=== PATIENT | female | born 1940 ===

== ENCOUNTER 2020-05-18 01:23 | Inpatient (IN) | payer MEDICARE ==
[2020-05-18] MEDS ORDERED: cloNIDine 0.1 MG TAB PO PRN (12:40)
[2020-05-18] MEDS ORDERED: busPIRone 5 MG TAB PO PRN (12:40)
[2020-05-18] MEDS ORDERED: ZIPRASIDONE MESYLATE 20 MG VIAL IM PRN (16:21)
[2020-05-18] MEDS ORDERED: LORazepam 2 MG/ML VIAL IM PRN (16:21)
[2020-05-18] MEDS: APIXABAN 5 MG TAB PO SCH (21:47)
[2020-05-19 01:08] LABS: Basophils # (Auto) 0.1 K/mm3 (0.0-0.1); Eosinophils # (Auto) 0.2 K/mm3 (0.0-0.4); Eosinophils % (Auto) 2.9 % (0.0-4.3); Hematocrit 40.3 % (30.3-42.9); Hemoglobin 13.4 gm/dl (10.1-14.3); Lymphocytes # (Auto) 2.4 K/mm3 (1.2-5.4); Lymphocytes % (Auto) 29.5 % (13.4-35.0); Mean Corpuscular HGB Conc 33 % (30-34); Mean Corpuscular Volume 91 fl (79-97); Monocytes # (Auto) 0.8 K/mm3 (0.0-0.8); Monocytes % (Auto) 10.3 % (0.0-7.3); Platelet Count 235 K/mm3 (140-440); Red Blood Count 4.45 M/mm3 (3.65-5.03); Red Cell Distribution Width 14.1 % (13.2-15.2)
[2020-05-19 02:20] LABS: Alanine Aminotransferase 25 units/L (7-56); Blood Urea Nitrogen 14 mg/dL (7-17); Calcium 9.2 mg/dL (8.4-10.2); Chol/HDL Ratio 2.23 %; HDL Cholesterol 69 mg/dL (40-59); Hemolysis Index 11; LDL Cholesterol,Direct 89 mg/dL (50-130)
[2020-05-19 02:31] LABS: BUN/Creatinine Ratio 20
--- NOTE | 2020-05-19 08:05 | History and Physical Report ---
GP History & Physical - History of Present Illness Date of admission: 05/18/20 Date of Examination: 05/19/20 Reason for Admission: Severe anxiety/depression History of Present Illness: HPI Patient is a 80-year-old currently , retired female who currently resides with her daughter with past medical history of dementia and no other significant psychiatric or medical history. Patient was admitted from [facility] with initial presenting presentation complaints of behavioral disturbances. By daughter, she report patient adjusted to living with less than 2 weeks ago after her brother dropped the patient off for difficulty caring for his mom due to similar reported behavioral concerns. Daughter report patient has been uncooperative at home, seen wandering around the property and going into neighbor's house and has also been difficult to deal with. Per patient, she report getting to an argument with her daughter at home and walked out of the house only to meet a neighbor whom she had a conversation with and brought her back to the apartment. Patient denies having any other kind of issues with her daughter, says she does not know why she is here but her daughter told her that she is here so that she can be nicer. At this moment patient denies SI, HI, and AVH PAST PSYCHIATRIC HISTORY: Diagnoses: Dementia Suicide attempts or Self-harm behavior: None reported Prior psychiatric hospitalizations: None reported Substance Abuse history: Carola Previous psychiatric medications tried: None Outpatient treatment: none reported PAST MEDICAL HISTORY: None reported Family Psychiatric History: None reported or documented SOCIAL HISTORY Marital Status: Living Arrangements: with daughter Employment Status: retired Access to guns/weapons: none reported Education: 10th grade History of Abuse: none reported Legal History: none REVIEW OF SYSTEMS Constitutional: Negative for weight loss ENT: Negative for stridor Respiratory: Negative for cough or hemoptysis All other systems reviewed and are negative MENTAL STATUS EXAMINATION General Appearance and Behavior: Age appropriate, good hygiene, wearing appropriate clothes, uncooperative polite with questioning. Cooperation: cooperative Psychomotor Behavior: Psychomotor normal Mood: Affect and affective range: Flat Thought Process: Tangential, loose associattion Thought Content: Paranoid and confused Speech: Normal volume, Regular rate and rhythm, Intellectual Functioning: Poor Suicidal Ideation: N/A Homicidal Ideation: N/A Impulse Control: Unimpaired Insight and Judgment: Impaired Memory: memory impaired Attention:Distractible, Orientation: Alert, but disoriented and confused Diagnoses USING SLUMS SCORING SYSTEM: PAtient had a score of 17 which puts her in the Dementia category. Treatment Plan risperdol 0.5 mg BID Patient admitted for inpatient psychiatric evaluation, medication adjustment and close monitoring The patient's behavior, mood, sleep and appetite will be closely monitored. Patient enrolled in individual and group therapeutic sessions and encouraged to attend. Patient provided with a safe and structured environment. Patient's physical health needs will be addressed by the Hospitalist. Hospitalist Consulted Labs including CBC, CMP, Lipid profile and Hemoglobin A1C levels ordered for baseline reference Social Assessment will be completed and the [employer]er will work with patient and family to ensure a suitable and safe disposition Medication adjustment will be made as clinically indicated Usual Wellness Advent/Preservation: - Start Trazodone 50 mg po QHS & 50 mg po QHS PRN between 10 PM & 2 AM for insomnia - Start Melatonin 5 mg po QHS to promote circadian rhythm - Start [place]-3 for brain health, reduce impulsivity, and as adjunctive treatment for mood disorder, continue upon discharge given overall benefits. - Start B1 prophylaxis with 200 mg po for 5 days The patient agreed on the treatment plan, understood the risk, benefit, alternative treatment, potential consequence of no treatment, and gave informed consent. Initial Certification Inpatient psych services: I certify that the inpatient psychiatric services are required for treatment that could reasonably be expected to improve the patient's condition. Estimated days: 7 Post hospital care: primary care provider, psychiatric provider Legal Status: Voluntary Reaction to Hospitalization: Accepting Medications and Allergies Allergies Allergy/AdvReac Type Severity Reaction Status Date / Time No Known Allergies Allergy Unverified 05/18/20 06:48 Home Medications Medication Instructions Recorded Confirmed Last Taken Type Apixaban [Eliquis] 5 mg PO BID 05/18/20 05/18/20 Unknown History Atorvastatin (Nf) [Lipitor (Nf)] 10 mg PO QHS 05/18/20 05/18/20 Unknown History FLUoxetine HCL [Prozac] 20 mg PO DAILY 05/18/20 05/18/20 Unknown History Losartan [Cozaar] 50 mg PO QDAY 05/18/20 05/18/20 Unknown History busPIRone [Buspar] 5 mg PO BID PRN 05/18/20 05/18/20 Unknown History cloNIDine [Catapres] 0.1 mg PO BID PRN 05/18/20 05/18/20 Unknown History Active Meds: Active Medications Apixaban (Apixaban 5 Mg Tab) 5 mg PO BID [facility]; Protocol Last Admin: 05/18/20 21:47 Dose: 5 mg Documented by: Atorvastatin Calcium (Atorvastatin 10 Mg Tab) 10 mg PO QHS [facility] Last Admin: 05/18/20 21:47 Dose: 10 mg Documented by: Buspirone HCl (Buspirone 5 Mg Tab) 5 mg PO BID PRN PRN Reason: Anxiety Last Admin: 05/18/20 20:20 Dose: 5 mg Documented by: Clonidine HCl (Clonidine 0.1 Mg Tab) 0.1 mg PO BID PRN PRN Reason: Anxiety Lorazepam (Lorazepam 2 Mg/Ml Vial) 1 mg IM Q4H PRN PRN Reason: Agitation Losartan Potassium (Losartan 50 Mg Tab) 50 mg PO QDAY [facility] Ziprasidone (Ziprasidone Mesylate 20 Mg Vial) 5 mg IM Q4H PRN PRN Reason: Agitation Results - Results Labs/Vitals: Laboratory Last Values WBC 8.1 K/mm3 (4.5-11.0) 05/19/20 00:27 RBC 4.45 M/mm3 (3.65-5.03) 05/19/20 00:27 Hgb 13.4 gm/dl (10.1-14.3) 05/19/20 00:27 Hct 40.3 % (30.3-42.9) 05/19/20 00:27 MCV 91 fl (79-97) 05/19/20 00:27 MCH 30 pg (28-32) 05/19/20 00:27 MCHC 33 % (30-34) 05/19/20 00:27 RDW 14.1 % (13.2-15.2) 05/19/20 00:27 Plt Count 235 K/mm3 (140-440) 05/19/20 00:27 Lymph % (Auto) 29.5 % (13.4-35.0) 05/19/20 00:27 [place] % (Auto) 10.3 % (0.0-7.3) H 05/19/20 00:27 Eos % (Auto) 2.9 % (0.0-4.3) 05/19/20 00:27 Baso % (Auto) 1.0 % (0.0-1.8) 05/19/20 00:27 Lymph # (Auto) 2.4 K/mm3 (1.2-5.4) 05/19/20 00:27 [place] # (Auto) 0.8 K/mm3 (0.0-0.8) 05/19/20 00:27 Eos # (Auto) 0.2 K/mm3 (0.0-0.4) 05/19/20 00:27 Baso # (Auto) 0.1 K/mm3 (0.0-0.1) 05/19/20 00:27 Seg Neutrophils % 56.3 % (40.0-70.0) 05/19/20 00: Seg Neutrophils # 4.5 K/mm3 (1.8-7.7) 05/19/20 00:27 Sodium 133 mmol/L (137-145) L 05/19/20 00:27 Potassium 3.6 mmol/L (3.6-5.0) 05/19/20 00:27 Chloride 99.0 mmol/L (98-107) 05/19/20 00:27 Carbon Dioxide 26 mmol/L (22-30) 05/19/20 00:27 Anion Gap 12 mmol/L 05/19/20 00:27 BUN 14 mg/dL (7-17) 05/19/20 00:27 Creatinine 0.7 mg/dL (0.6-1.2) 05/19/20 00:27 Estimated GFR > 60 ml/min 05/19/20 00: BUN/Creatinine Ratio 20 % 05/19/20 00:27 Glucose 86 mg/dL (65-100) 05/19/20 00:27 POC Glucose 124 mg/dL (70-105) H 05/18/20 19:41 Hemoglobin A1c 5.6 % (4-6) 05/19/20 00:27 Calcium 9.2 mg/dL (8.4-10.2) 05/19/20 00:27 Total Bilirubin 0.40 mg/dL (0.1-1.2) 05/19/20 00:27 AST 34 units/L (5-40) 05/19/20 00:27 ALT 25 units/L (7-56) 05/19/20 00:27 Alkaline Phosphatase 103 units/L (35-129) 05/19/20 00:27 Total Protein 7.3 g/dL (6.3-8.2) 05/19/20 00:27 Albumin 4.0 g/dL (3.9-5) 05/19/20 00:27 Albumin/Globulin Ratio 1.2 % 05/19/20 00:27 Triglycerides 68 mg/dL (2-149) 05/19/20 00:27 Cholesterol 154 mg/dL (50-199) 05/19/20 00:27 LDL Cholesterol Direct 89 mg/dL (50-130) 05/19/20 00:27 HDL Cholesterol 69 mg/dL (40-59) H 05/19/20 00:27 Cholesterol/HDL Ratio 2.23 % 05/19/20 00:27 TSH 3.910 mlU/mL (0.270-4.200) 05/19/20 00:27 Last Vital Signs Temp 98.1 F 05/18/20 22:00 Pulse 98 H 05/18/20 22:00 Resp 15 05/18/20 22:00 BP 125/63 05/18/20 22:00 Pulse Ox 95 05/18/20 22:00 Physical Examination - Constitutional Vitals: Vital Signs Temp Pulse Resp BP Pulse Ox 98.1 F 98 H 15 125/63 95 05/18/20 22:00 05/18/20 22:00 05/18/20 22:00 05/18/20 22:00 05/18/20 22:00 Temperature -Last 24 Hours Temperature 98.1 F Temperature 98.1 F Mental Status Exam - Vital signs Last Vital Signs Temp 98.1 F 05/18/20 22:00 Pulse 98 H 05/18/20 22:00 Resp 15 05/18/20 22:00 BP 125/63 05/18/20 22:00 Pulse Ox 95 05/18/20 22:00 Physician Certification - Certification Statement Physician Certification Statement: This is an acknowledgement statement that MAUREEN SANTILLAN is a 80 year old F who requires inpatient psychiatric admission for treatment which could reasonably be expected to improve the patient's condition for Estimated period of time patient will need to remain in the hospital: [ ] Plan for post-hospital care: [ ]
[2020-05-19] MEDS: LOSARTAN 50 MG TAB PO SCH (09:37)
[2020-05-19] MEDS: APIXABAN 5 MG TAB PO SCH ×2 (09:54→21:21)
[2020-05-19] MEDS: risperiDONE 0.25 MG TAB PO SCH ×2 (09:54→21:21)
--- NOTE | 2020-05-19 20:58 | Consultation ---
History of Present Illness - Reason for Consult Consult date: 05/19/20 Medical management Requesting physician: DAYLIN JAMISON - History of Present Illness 80 year Female with Vascular Dementia with Behavioral Disturbance, Cerebral Atheroscleosis, HTN, HLD currently on therapeutic anticoagulation admitted to geriatric psychiatry for psychiatric stabilization. Consult placed for medical management. Patient seen and evaluated in her room. Patient is cooperative wi th exam and interview. Patient denies fever, chills, chest pain, palpitations, shortness of breath, difficulty breathing, productive cough, recent ill contacts, or known exposure to COVID 19. No reported nursing events. Past History Past Medical History: hypertension, hyperlipidemia, other (see hpi) Past Surgical History: No surgical history, Other (reviewed) Social history: . denies: smoking, alcohol abuse, prescription drug abuse Family history: no significant family history, other (reviewed) Medications and Allergies Allergies Allergy/AdvReac Type Severity Reaction Status Date / Time No Known Allergies Allergy Unverified 05/18/20 06:48 Home Medications Medication Instructions Recorded Confirmed Last Taken Type Apixaban [Eliquis] 5 mg PO BID 05/18/20 05/18/20 Unknown History Atorvastatin (Nf) [Lipitor (Nf)] 10 mg PO QHS 05/18/20 05/18/20 Unknown History FLUoxetine HCL [Prozac] 20 mg PO DAILY 05/18/20 05/18/20 Unknown History Losartan [Cozaar] 50 mg PO QDAY 05/18/20 05/18/20 Unknown History busPIRone [Buspar] 5 mg PO BID PRN 05/18/20 05/18/20 Unknown History cloNIDine [Catapres] 0.1 mg PO BID PRN 05/18/20 05/18/20 Unknown History Active Meds: Active Medications Apixaban (Apixaban 5 Mg Tab) 5 mg PO BID [facility]; Protocol Last Admin: 05/19/20 09:54 Dose: 5 mg Documented by: Atorvastatin Calcium (Atorvastatin 10 Mg Tab) 10 mg PO QHS [facility] Last Admin: 05/18/20 21:47 Dose: 10 mg Documented by: Buspirone HCl (Buspirone 5 Mg Tab) 5 mg PO BID PRN PRN Reason: Anxiety Last Admin: 05/18/20 20:20 Dose: 5 mg Documented by: Clonidine HCl (Clonidine 0.1 Mg Tab) 0.1 mg PO BID PRN PRN Reason: Anxiety Lorazepam (Lorazepam 2 Mg/Ml Vial) 1 mg IM Q4H PRN PRN Reason: Agitation Losartan Potassium (Losartan 50 Mg Tab) 50 mg PO QDAY [facility] Last Admin: 05/19/20 09:37 Dose: 50 mg Documented by: Risperidone (Risperidone 0.25 Mg Tab) 0.5 mg PO BID [facility] Last Admin: 05/19/20 09:54 Dose: 0.5 mg Documented by: Ziprasidone (Ziprasidone Mesylate 20 Mg Vial) 5 mg IM Q4H PRN PRN Reason: Agitation Review of Systems Constitutional: no weight loss, no weight gain Ears, nose, mouth and throat: no ear pain, no nose pain Breasts: no change in shape, no swelling, no mass Cardiovascular: no chest pain, no palpitations, no rapid/irregular heart beat Respiratory: no cough, no excessive sputum, no hemoptysis Gastrointestinal: no abdominal pain, no vomiting, no diarrhea, no constipation, no hematemesis Genitourinary Female: no pelvic pain, no flank pain, no dysuria, no urinary frequency, no urgency Rectal: no pain, no incontinence, no bleeding Musculoskeletal: no neck stiffness, no neck pain, no shooting arm pain, no low back pain, no shooting leg pain, no leg numbness/tingling Integumentary: no rash, no pruritis, no redness, no sores Neurological: no head injury, no paralysis, no weakness, no numbness, no tremors, no ataxia Psychiatric: no anxiety, no change in sleep habits, no insomnia, no change in appetite Endocrine: no cold intolerance, no polyphagia, no polydipsia, no nocturia, no excessive sweating Hematologic/Lymphatic: no easy bruising, no easy bleeding Allergic/Immunologic: no wheezing Exam - Constitutional Vitals: Temp Pulse Resp BP Pulse Ox 97.9 F 79 16 137/76 98 05/19/20 19:36 05/19/20 19:36 05/19/20 19:36 05/19/20 19:36 05/19/20 19:36 General appearance: Present: no acute distress, well-nourished - EENT Eyes: Present: PERRL ENT: hearing intact, clear oral mucosa - Neck Neck: Present: supple, normal ROM - Respiratory Respiratory effort: normal Respiratory: bilateral: CTA - Cardiovascular Heart Sounds: Present: S1 & S2. Absent: rub, click - Extremities Extremities: pulses symmetrical, No edema Peripheral Pulses: within normal limits - Abdominal General gastrointestinal: Present: soft, non-tender, non-distended, normal bowel sounds Female genitourinary: Present: normal - Integumentary Integumentary: Present: clear, warm, dry - Musculoskeletal Musculoskeletal: gait normal, strength equal bilaterally - Psychiatric Psychiatric: cooperative - Neurologic Neurologic: CNII-XII intact, moves all extremities Results - Labs CBC & Chem 7: 05/19/20 00:27 05/19/20 00:27 Labs: Abnormal lab results 05/18/20 05/19/20 05/19/20 Range/Units 19:41 00:27 00:27 [place] % (Auto) 10.3 H (0.0-7.3) % Sodium 133 L (137-145) mmol/L POC Glucose 124 H (70-105) mg/dL HDL Cholesterol 69 H (40-59) mg/dL Assessment and Plan - Patient Problems (1) Vascular dementia with behavior disturbance Current Visit: Yes Status: Acute Plan to address problem: verbal prompting, verbal direction, benzodiazepine therapy as clinically indicated. (2) HTN (hypertension) Current Visit: Yes Status: Acute Qualifiers: Hypertension type: essential hypertension Qualified Code(s): I10 - Essential (primary) hypertension Plan to address problem: Monitor bp q shift, continue medical management (3) HLD (hyperlipidemia) Current Visit: Yes Status: Acute Qualifiers: Hyperlipidemia type: unspecified Qualified Code(s): E78.5 - Hyperlipidemia, unspecified Plan to address problem: statin therapy as clinically indicated, low cholesterol diet (4) Cerebral atherosclerosis Current Visit: Yes Status: Acute Plan to address problem: risk factor reduction.
--- NOTE | 2020-05-20 07:48 | Progress Note ---
Subjective Date of service: 05/20/20 Principal diagnosis: Vascular dementia with behavior disturbance Subjective Comment: Per Psych Nurse: Received in social room interacting appropriate with peers. A&OX3 with intermittent confusion. Denies pain, SI or HI. No acute distress observed and none reported. Will continue to monitor. pt was present for full duration of group and actively engaged. when pt noticed the activity we were completing, pt smiled. pt sat with peers and created a bracelet with her daughter's name on it. pt's color of choice were purple. pt used uniformity and organization when she created her bracelet. pt was able to tie her own bracelet without assistance. pt socialized wit peers and supported them aeb complimenting their creations. Psych Progress Patient seen today, appears smiley, states she remembers talking to daughter but does not know if it was today or the previous day. Patient describes a good and stable mood, denies being depressed or excessively nervous. Patient eats and sleeps well. She is also medication compliant. REVIEW OF SYSTEMS Constitutional: Negative for weight loss ENT: Negative for stridor Respiratory: Negative for cough or hemoptysis All other systems reviewed and are negative MENTAL STATUS EXAMINATION General Appearance and Behavior: Age appropriate, good hygiene, wearing appropriate clothes, uncooperative polite with questioning. Cooperation: cooperative Psychomotor Behavior: Psychomotor normal Mood: good Affect and affective range: congruent with mood Thought Process: within reality Thought Content: logical Speech: Normal volume, Regular rate and rhythm, Intellectual Functioning: Poor Suicidal Ideation: denies Homicidal Ideation: denies Impulse Control: Unimpaired Insight and Judgment: Impaired Memory: memory impaired Attention:Distractible, Orientation: Alert, but disoriented and confused Assessment and Plan - Patient Problems (1) Vascular dementia with behavior disturbance Current Visit: Yes Status: Acute USING SLUMS SCORING SYSTEM: Patient had a score of 17 which puts her in the Dementia category. Treatment Plan Risperdol 0.5 mg BID Plan to increase risperdol to 1mg BID tomorrow. Patient admitted for inpatient psychiatric evaluation, medication adjustment and close monitoring The patient's behavior, mood, sleep and appetite will be closely monitored. Patient enrolled in individual and group therapeutic sessions and encouraged to attend. Patient provided with a safe and structured environment. Patient's physical health needs will be addressed by the Hospitalist. Hospitalist Consulted Labs including CBC, CMP, Lipid profile and Hemoglobin A1C levels ordered for baseline reference Social Assessment will be completed and the Responder will work with patient and family to ensure a suitable and safe disposition Medication adjustment will be made as clinically indicated Usual Wellness Adventist/Preservation: - Start Trazodone 50 mg po QHS & 50 mg po QHS PRN between 10 PM & 2 AM for insomnia - Start Melatonin 5 mg po QHS to promote circadian rhythm - Start [place]-3 for brain health, reduce impulsivity, and as adjunctive treatment for mood disorder, continue upon discharge given overall benefits. - Start B1 prophylaxis with 200 mg po for 5 days The patient agreed on the treatment plan, understood the risk, benefit, alternative treatment, potential consequence of no treatment, and gave informed consent. Initial Certification Inpatient psych services: I certify that the inpatient psychiatric services are required for treatment that could reasonably be expected to improve the patient's condition. Estimated days: 5 Assessment and Plan - Patient Problems (1) Vascular dementia with behavior disturbance Current Visit: Yes Status: Acute Medications and Allergies Allergies Allergy/AdvReac Type Severity Reaction Status Date / Time No Known Allergies Allergy Unverified 05/18/20 06:48 Home Medications Medication Instructions Recorded Confirmed Last Taken Type Apixaban [Eliquis] 5 mg PO BID 05/18/20 05/18/20 Unknown History Atorvastatin (Nf) [Lipitor (Nf)] 10 mg PO QHS 05/18/20 05/18/20 Unknown History FLUoxetine HCL [Prozac] 20 mg PO DAILY 05/18/20 05/18/20 Unknown History Losartan [Cozaar] 50 mg PO QDAY 05/18/20 05/18/20 Unknown History busPIRone [Buspar] 5 mg PO BID PRN 05/18/20 05/18/20 Unknown History cloNIDine [Catapres] 0.1 mg PO BID PRN 05/18/20 05/18/20 Unknown History Active Meds: Active Medications Apixaban (Apixaban 5 Mg Tab) 5 mg PO BID [facility]; Protocol Last Admin: 05/19/20 21:21 Dose: 5 mg Documented by: Atorvastatin Calcium (Atorvastatin 10 Mg Tab) 10 mg PO QHS [facility] Last Admin: 05/19/20 21:21 Dose: 10 mg Documented by: Buspirone HCl (Buspirone 5 Mg Tab) 5 mg PO BID PRN PRN Reason: Anxiety Last Admin: 05/18/20 20:20 Dose: 5 mg Documented by: Clonidine HCl (Clonidine 0.1 Mg Tab) 0.1 mg PO BID PRN PRN Reason: Anxiety Lorazepam (Lorazepam 2 Mg/Ml Vial) 1 mg IM Q4H PRN PRN Reason: Agitation Losartan Potassium (Losartan 50 Mg Tab) 50 mg PO QDAY [facility] Last Admin: 05/19/20 09:37 Dose: 50 mg Documented by: Risperidone (Risperidone 0.25 Mg Tab) 0.5 mg PO BID [facility] Last Admin: 05/19/20 21:21 Dose: 0.5 mg Documented by: Ziprasidone (Ziprasidone Mesylate 20 Mg Vial) 5 mg IM Q4H PRN PRN Reason: Agitation Results - Results Labs/Vitals: Laboratory Last Values WBC 8.1 K/mm3 (4.5-11.0) 05/19/20 00:27 RBC 4.45 M/mm3 (3.65-5.03) 05/19/20 00:27 Hgb 13.4 gm/dl (10.1-14.3) 05/19/20 00:27 Hct 40.3 % (30.3-42.9) 05/19/20 00:27 MCV 91 fl (79-97) 05/19/20 00:27 MCH 30 pg (28-32) 05/19/20 00:27 MCHC 33 % (30-34) 05/19/20 00:27 RDW 14.1 % (13.2-15.2) 05/19/20 00:27 Plt Count 235 K/mm3 (140-440) 05/19/20 00:27 Lymph % (Auto) 29.5 % (13.4-35.0) 05/19/20 00:27 [place] % (Auto) 10.3 % (0.0-7.3) H 05/19/20 00:27 Eos % (Auto) 2.9 % (0.0-4.3) 05/19/20 00:27 Baso % (Auto) 1.0 % (0.0-1.8) 05/19/20 00:27 Lymph # (Auto) 2.4 K/mm3 (1.2-5.4) 05/19/20 00:27 [place] # (Auto) 0.8 K/mm3 (0.0-0.8) 05/19/20 00:27 Eos # (Auto) 0.2 K/mm3 (0.0-0.4) 05/19/20 00:27 Baso # (Auto) 0.1 K/mm3 (0.0-0.1) 05/19/20 00:27 Seg Neutrophils % 56.3 % (40.0-70.0) 05/19/20 00: Seg Neutrophils # 4.5 K/mm3 (1.8-7.7) 05/19/20 00:27 Sodium 133 mmol/L (137-145) L 05/19/20 00:27 Potassium 3.6 mmol/L (3.6-5.0) 05/19/20 00: Chloride 99.0 mmol/L (98-107) 05/19/20 00: Carbon Dioxide 26 mmol/L (22-30) 05/19/20 00: Anion Gap 12 mmol/L 05/19/20 00: BUN 14 mg/dL (7-17) 05/19/20 00: Creatinine 0.7 mg/dL (0.6-1.2) 05/19/20 00:27 Estimated GFR > 60 ml/min 05/19/20 00: BUN/Creatinine Ratio 20 % 05/19/20 00:27 Glucose 86 mg/dL (65-100) 05/19/20 00:27 POC Glucose 124 mg/dL (70-105) H 05/18/20 19:41 Hemoglobin A1c 5.6 % (4-6) 05/19/20 00: Calcium 9.2 mg/dL (8.4-10.2) 05/19/20 00:27 Total Bilirubin 0.40 mg/dL (0.1-1.2) 05/19/20 00:27 AST 34 units/L (5-40) 05/19/20 00:27 ALT 25 units/L (7-56) 05/19/20 00:27 Alkaline Phosphatase 103 units/L (35-129) 05/19/20 00:27 Total Protein 7.3 g/dL (6.3-8.2) 05/19/20 00: Albumin 4.0 g/dL (3.9-5) 05/19/20 00:27 Albumin/Globulin Ratio 1.2 % 05/19/20 00:27 Triglycerides 68 mg/dL (2-149) 05/19/20 00:27 Cholesterol 154 mg/dL (50-199) 05/19/20 00:27 LDL Cholesterol Direct 89 mg/dL (50-130) 05/19/20 00:27 HDL Cholesterol 69 mg/dL (40-59) H 05/19/20 00:27 Cholesterol/HDL Ratio 2.23 % 05/19/20 00:27 TSH 3.910 mlU/mL (0.270-4.200) 05/19/20 00:27 Last Vital Signs Temp 97.9 F 05/19/20 22:00 Pulse 83 05/19/20 22:00 Resp 16 05/19/20 22:00 BP 137/76 05/19/20 22:00 Pulse Ox 98 05/19/20 22:00
[2020-05-20] MEDS: risperiDONE 0.25 MG TAB PO SCH ×2 (09:23→21:07)
[2020-05-20] MEDS: LOSARTAN 50 MG TAB PO SCH (09:23)
[2020-05-20] MEDS: APIXABAN 5 MG TAB PO SCH ×2 (09:23→21:07)
--- NOTE | 2020-05-20 12:02 | Progress Note ---
Subjective Date of service: 05/20/20 Principal diagnosis: Vascular dementia with behavior disturbance Subjective Comment: Patient Name: MAUREEN SANTILLAN Date of : 1940 Patient Status: Inpatient Attending Provider: DAYLIN JAMISON Date: 05/20/20 07:47 Initialization Date: 05/20/20 07:47 Subjective Date of service: 05/20/20 Principal diagnosis: Vascular dementia with behavior disturbance Subjective Comment: Per Psych Nurse: Received in social room interacting appropriate with peers. A&OX3 with intermittent confusion. Denies pain, SI or HI. No acute distress observed and none reported. Will continue to monitor. pt was present for full duration of group and actively engaged. when pt noticed the activity we were completing, pt smiled. pt sat with peers and created a bracelet with her daughter's name on it. pt's color of choice were purple. pt used uniformity and organization when she created her bracelet. pt was able to tie her own bracelet without assistance. pt socialized wit peers and supported them aeb complimenting their creations. Psych Progress Psych Progress HPI Patient's morning assessment completed. Alert, cooperative, and exhibit polite with questioning. Patient appears pleasant, happy and not in depressed mood. Patient reports eats good and sleeps very well with no nightmare. Denies anxiety, agitation, hypomania or ara. Also, denies SI/HI, and visual/auditory hallucinations. Reason for continuing inpatient treatment: We will continue to monitor patient's mood and mental stability. REVIEW OF SYSTEMS Constitutional: Negative for weight loss ENT: Negative for strider Respiratory: Negative for cough or hemoptysis All other systems reviewed and are negative MENTAL STATUS EXAMINATION General Appearance and Behavior: Age appropriate, good hygiene, wearing appropriate clothes, cooperative polite with questioning. Cooperation: cooperative Psychomotor Behavior: Psychomotor normal Mood: good Affect and affective range: congruent with mood Thought Process: within reality Thought Content: logical Speech: Normal volume, Regular rate and rhythm, Intellectual Functioning: Average Suicidal Ideation: denies Homicidal Ideation: denies Impulse Control: Unimpaired Insight and Judgment: normal insight and judgment Memory: intact Attention: Normal Orientation: Alert, but oriented Assessment and Plan - Patient Problems (1) Vascular dementia with behavior disturbance Current Visit: Yes Status: Acute USING SLUMS SCORING SYSTEM: Patient had a score of 17 which puts her in the Dementia category. Treatment Plan Risperdol 0.5 mg BID Plan to increase risperdol to 1mg BID tomorrow. Patient admitted for inpatient psychiatric evaluation, medication adjustment and close monitoring The patient's behavior, mood, sleep and appetite will be closely monitored. Patient enrolled in individual and group therapeutic sessions and encouraged to attend. Patient provided with a safe and structured environment. Patient's physical health needs will be addressed by the Hospitalist. Hospitalist Consulted Labs including CBC, CMP, Lipid profile and Hemoglobin A1C levels ordered for baseline reference Social Assessment will be completed and the [employer] will work with patient and family to ensure a suitable and safe disposition Medication adjustment will be made as clinically indicated Usual Wellness [employer]/Preservation: - Start Trazodone 50 mg po QHS & 50 mg po QHS PRN between 10 PM & 2 AM for insomnia - Start Melatonin 5 mg po QHS to promote circadian rhythm - Start [place]-3 for brain health, reduce impulsivity, and as adjunctive treatment for mood disorder, continue upon discharge given overall benefits. - Start B1 prophylaxis with 200 mg po for 5 days The patient agreed on the treatment plan, understood the risk, benefit, alternative treatment, potential consequence of no treatment, and gave informed consent. Initial Certification Inpatient psych services: I certify that the inpatient psychiatric services are required for treatment that could reasonably be expected to improve the patient's condition. Estimated days: 5 Medications and Allergies Allergies Allergy/AdvReac Type Severity Reaction Status Date / Time No Known Allergies Allergy Unverified 05/18/20 06:48 Home Medications Medication Instructions Recorded Confirmed Last Taken Type Apixaban [Eliquis] 5 mg PO BID 05/18/20 05/18/20 Unknown History Atorvastatin (Nf) [Lipitor (Nf)] 10 mg PO QHS 05/18/20 05/18/20 Unknown History FLUoxetine HCL [Prozac] 20 mg PO DAILY 05/18/20 05/18/20 Unknown History Losartan [Cozaar] 50 mg PO QDAY 05/18/20 05/18/20 Unknown History busPIRone [Buspar] 5 mg PO BID PRN 05/18/20 05/18/20 Unknown History cloNIDine [Catapres] 0.1 mg PO BID PRN 05/18/20 05/18/20 Unknown History Active Meds: Active Medications Apixaban (Apixaban 5 Mg Tab) 5 mg PO BID [facility]; Protocol Last Admin: 05/20/20 09:23 Dose: 5 mg Documented by: Atorvastatin Calcium (Atorvastatin 10 Mg Tab) 10 mg PO QHS [facility] Last Admin: 05/19/20 21:21 Dose: 10 mg Documented by: Buspirone HCl (Buspirone 5 Mg Tab) 5 mg PO BID PRN PRN Reason: Anxiety Last Admin: 05/18/20 20:20 Dose: 5 mg Documented by: Clonidine HCl (Clonidine 0.1 Mg Tab) 0.1 mg PO BID PRN PRN Reason: Anxiety Lorazepam (Lorazepam 2 Mg/Ml Vial) 1 mg IM Q4H PRN PRN Reason: Agitation Losartan Potassium (Losartan 50 Mg Tab) 50 mg PO QDAY [facility] Last Admin: 05/20/20 09:23 Dose: 50 mg Documented by: Risperidone (Risperidone 0.25 Mg Tab) 0.5 mg PO BID [facility] Last Admin: 05/20/20 09:23 Dose: 0.5 mg Documented by: Ziprasidone (Ziprasidone Mesylate 20 Mg Vial) 5 mg IM Q4H PRN PRN Reason: Agitation Results - Results Labs/Vitals: Laboratory Last Values WBC 8.1 K/mm3 (4.5-11.0) 05/19/20 00:27 RBC 4.45 M/mm3 (3.65-5.03) 05/19/20 00:27 Hgb 13.4 gm/dl (10.1-14.3) 05/19/20 00:27 Hct 40.3 % (30.3-42.9) 05/19/20 00:27 MCV 91 fl (79-97) 05/19/20 00:27 MCH 30 pg (28-32) 05/19/20 00:27 MCHC 33 % (30-34) 05/19/20 00:27 RDW 14.1 % (13.2-15.2) 05/19/20 00:27 Plt Count 235 K/mm3 (140-440) 05/19/20 00:27 Lymph % (Auto) 29.5 % (13.4-35.0) 05/19/20 00:27 [place] % (Auto) 10.3 % (0.0-7.3) H 05/19/20 00:27 Eos % (Auto) 2.9 % (0.0-4.3) 05/19/20 00:27 Baso % (Auto) 1.0 % (0.0-1.8) 05/19/20 00:27 Lymph # (Auto) 2.4 K/mm3 (1.2-5.4) 05/19/20 00:27 [place] # (Auto) 0.8 K/mm3 (0.0-0.8) 05/19/20 00:27 Eos # (Auto) 0.2 K/mm3 (0.0-0.4) 05/19/20 00:27 Baso # (Auto) 0.1 K/mm3 (0.0-0.1) 05/19/20 00:27 Seg Neutrophils % 56.3 % (40.0-70.0) 05/19/20 00:27 Seg Neutrophils # 4.5 K/mm3 (1.8-7.7) 05/19/20 00:27 Sodium 133 mmol/L (137-145) L 05/19/20 00:27 Potassium 3.6 mmol/L (3.6-5.0) 05/19/20 00:27 Chloride 99.0 mmol/L (98-107) 05/19/20 00:27 Carbon Dioxide 26 mmol/L (22-30) 05/19/20 00:27 Anion Gap 12 mmol/L 05/19/20 00:27 BUN 14 mg/dL (7-17) 05/19/20 00:27 Creatinine 0.7 mg/dL (0.6-1.2) 05/19/20 00:27 Estimated GFR > 60 ml/min 05/19/20 00:27 BUN/Creatinine Ratio 20 % 05/19/20 00:27 Glucose 86 mg/dL (65-100) 05/19/20 00:27 POC Glucose 124 mg/dL (70-105) H 05/18/20 19:41 Hemoglobin A1c 5.6 % (4-6) 05/19/20 00:27 Calcium 9.2 mg/dL (8.4-10.2) 05/19/20 00:27 Total Bilirubin 0.40 mg/dL (0.1-1.2) 05/19/20 00:27 AST 34 units/L (5-40) 05/19/20 00:27 ALT 25 units/L (7-56) 05/19/20 00:27 Alkaline Phosphatase 103 units/L (35-129) 05/19/20 00:27 Total Protein 7.3 g/dL (6.3-8.2) 05/19/20 00: Albumin 4.0 g/dL (3.9-5) 05/19/20 00: Albumin/Globulin Ratio 1.2 % 05/19/20 00: Triglycerides 68 mg/dL (2-149) 05/19/20 00: Cholesterol 154 mg/dL (50-199) 05/19/20 00: LDL Cholesterol Direct 89 mg/dL (50-130) 05/19/20 00: HDL Cholesterol 69 mg/dL (40-59) H 05/19/20 00:27 Cholesterol/HDL Ratio 2.23 % 05/19/20 00: TSH 3.910 mlU/mL (0.270-4.200) 05/19/20 00:27 Last Vital Signs Temp 98.2 F 05/20/20 09:31 Pulse 70 05/20/20 09:31 Resp 18 05/20/20 09:31 BP 112/67 05/20/20 09:31 Pulse Ox 97 05/20/20 09:31
--- NOTE | 2020-05-21 07:40 | Progress Note ---
Subjective Date of service: 05/21/20 Principal diagnosis: Vascular dementia with behavior disturbance Subjective Comment: PER Nurse Note: Pt continues to be pleasant, social w/ others, attentive during groups and cooperative w/ staff. pt spoke w/ her daughter on the telephone this afternoon. The patient was seen today, she is lying down she is a/o x 3. She is pleasant. She says she is "unsure of why my daughter brought me here." She denies SI/HI or hallucinations of any kind. Reason for continued inpatient treatment: The patient was admitted for aggression and had failed outpatient treatment. Although she appears to be stable, will continue to treat and monitor to ensure the patient is safe and stable to discharge. REVIEW OF SYSTEMS Constitutional: Negative for weight loss ENT: Negative for strider Respiratory: Negative for cough or hemoptysis All other systems reviewed and are negative MENTAL STATUS EXAMINATION General Appearance and Behavior: Age appropriate, good hygiene, wearing appropriate clothes, cooperative polite with questioning. Cooperation: cooperative Psychomotor Behavior: Psychomotor normal Mood: good Affect and affective range: congruent with mood Thought Process: within reality Thought Content: logical Speech: Normal volume, Regular rate and rhythm, Intellectual Functioning: Average Suicidal Ideation: denies Homicidal Ideation: denies Impulse Control: Unimpaired Insight and Judgment: normal insight and judgment Memory: intact Attention: Normal Orientation: Alert, but oriented Assessment and Plan (1) Vascular dementia with behavior disturbance Current Visit: Yes Status: Acute USING SLUMS SCORING SYSTEM: Patient had a score of 17 which puts her in the Dementia category. Treatment Plan Patient admitted for inpatient psychiatric evaluation, medication adjustment and close monitoring The patient's behavior, mood, sleep and appetite will be closely monitored. Patient enrolled in individual and group therapeutic sessions and encouraged to attend. Patient provided with a safe and structured environment. Patient's physical health needs will be addressed by the Hospitalist. Hospitalist Consulted Labs including CBC, CMP, Lipid profile and Hemoglobin A1C levels ordered for baseline reference Social Assessment will be completed and the Putty Worker will work with patient and family to ensure a suitable and safe disposition Medication adjustment will be made as clinically indicated No changes made today Usual Wellness [employer]/Preservation: - Start Trazodone 50 mg po QHS & 50 mg po QHS PRN between 10 PM & 2 AM for insomnia - Start Melatonin 5 mg po QHS to promote circadian rhythm - Start [place]-3 for brain health, reduce impulsivity, and as adjunctive treatment for mood disorder, continue upon discharge given overall benefits. - Start B1 prophylaxis with 200 mg po for 5 days The patient agreed on the treatment plan, understood the risk, benefit, alternative treatment, potential consequence of no treatment, and gave informed consent. Estimated days: 5 Outpatient treatment upon discharge Medications and Allergies Allergies Allergy/AdvReac Type Severity Reaction Status Date / Time No Known Allergies Allergy Unverified 05/18/20 06:48 Home Medications Medication Instructions Recorded Confirmed Last Taken Type Apixaban [Eliquis] 5 mg PO BID 05/18/20 05/18/20 Unknown History Atorvastatin (Nf) [Lipitor (Nf)] 10 mg PO QHS 05/18/20 05/18/20 Unknown History FLUoxetine HCL [Prozac] 20 mg PO DAILY 05/18/20 05/18/20 Unknown History Losartan [Cozaar] 50 mg PO QDAY 05/18/20 05/18/20 Unknown History busPIRone [Buspar] 5 mg PO BID PRN 05/18/20 05/18/20 Unknown History cloNIDine [Catapres] 0.1 mg PO BID PRN 05/18/20 05/18/20 Unknown History Active Meds: Active Medications Apixaban (Apixaban 5 Mg Tab) 5 mg PO BID [facility]; Protocol Last Admin: 05/20/20 21:07 Dose: 5 mg Documented by: Atorvastatin Calcium (Atorvastatin 10 Mg Tab) 10 mg PO QHS [facility] Last Admin: 05/20/20 21:07 Dose: 10 mg Documented by: Buspirone HCl (Buspirone 5 Mg Tab) 5 mg PO BID PRN PRN Reason: Anxiety Last Admin: 05/18/20 20:20 Dose: 5 mg Documented by: Clonidine HCl (Clonidine 0.1 Mg Tab) 0.1 mg PO BID PRN PRN Reason: Anxiety Lorazepam (Lorazepam 2 Mg/Ml Vial) 1 mg IM Q4H PRN PRN Reason: Agitation Losartan Potassium (Losartan 50 Mg Tab) 50 mg PO QDAY [facility] Last Admin: 05/20/20 09:23 Dose: 50 mg Documented by: Risperidone (Risperidone 0.25 Mg Tab) 0.5 mg PO BID [facility] Last Admin: 05/20/20 21:07 Dose: 0.5 mg Documented by: Ziprasidone (Ziprasidone Mesylate 20 Mg Vial) 5 mg IM Q4H PRN PRN Reason: Agitation Results - Results Labs/Vitals: Laboratory Last Values WBC 8.1 K/mm3 (4.5-11.0) 05/19/20 00: RBC 4.45 M/mm3 (3.65-5.03) 05/19/20 00: Hgb 13.4 gm/dl (10.1-14.3) 05/19/20 00: Hct 40.3 % (30.3-42.9) 05/19/20: MCV 91 fl (79-97) 05/19/20 00: MCH 30 pg (28-32) 05/19/20 00: MCHC 33 % (30-34) 05/19/20 00: RDW 14.1 % (13.2-15.2) 05/19/20 00: Plt Count 235 K/mm3 (140-440) 05/19/20 00: Lymph % (Auto) 29.5 % (13.4-35.0) 05/19/20 00: [place] % (Auto) 10.3 % (0.0-7.3) H 05/19/20 00: Eos % (Auto) 2.9 % (0.0-4.3) 05/19/20 00: Baso % (Auto) 1.0 % (0.0-1.8) 05/19/20 00: Lymph # (Auto) 2.4 K/mm3 (1.2-5.4) 05/19/20 00: [place] # (Auto) 0.8 K/mm3 (0.0-0.8) 05/19/20 00: Eos # (Auto) 0.2 K/mm3 (0.0-0.4) 05/19/20 00: Baso # (Auto) 0.1 K/mm3 (0.0-0.1) 05/19/20 00: Seg Neutrophils % 56.3 % (40.0-70.0) 05/19/20 00: Seg Neutrophils # 4.5 K/mm3 (1.8-7.7) 05/19/20 00: Sodium 133 mmol/L (137-145) L 05/19/20 00: Potassium 3.6 mmol/L (3.6-5.0) 05/19/20 00:27 Chloride 99.0 mmol/L (98-107) 05/19/20 00:27 Carbon Dioxide 26 mmol/L (22-30) 05/19/20 00:27 Anion Gap 12 mmol/L 05/19/20 00:27 BUN 14 mg/dL (7-17) 05/19/20 00:27 Creatinine 0.7 mg/dL (0.6-1.2) 05/19/20 00:27 Estimated GFR > 60 ml/min 05/19/20 00: BUN/Creatinine Ratio 20 % 05/19/20 00:27 Glucose 86 mg/dL (65-100) 05/19/20 00: POC Glucose 124 mg/dL (70-105) H 05/18/20 19:41 Hemoglobin A1c 5.6 % (4-6) 05/19/20 00: Calcium 9.2 mg/dL (8.4-10.2) 05/19/20 00: Total Bilirubin 0.40 mg/dL (0.1-1.2) 05/19/20 00:27 AST 34 units/L (5-40) 05/19/20 00:27 ALT 25 units/L (7-56) 05/19/20 00:27 Alkaline Phosphatase 103 units/L (35-129) 05/19/20 00:27 Total Protein 7.3 g/dL (6.3-8.2) 05/19/20 00: Albumin 4.0 g/dL (3.9-5) 05/19/20 00: Albumin/Globulin Ratio 1.2 % 05/19/20 00:27 Triglycerides 68 mg/dL (2-149) 05/19/20 00:27 Cholesterol 154 mg/dL (50-199) 05/19/20 00:27 LDL Cholesterol Direct 89 mg/dL (50-130) 05/19/20 00:27 HDL Cholesterol 69 mg/dL (40-59) H 05/19/20 00:27 Cholesterol/HDL Ratio 2.23 % 05/19/20 00:27 TSH 3.910 mlU/mL (0.270-4.200) 05/19/20 00:27 Last Vital Signs Temp 97.9 F 05/20/20 22:00 Pulse 79 05/20/20 22:00 Resp 18 05/20/20 22:00 BP 144/72 05/20/20 22:00 Pulse Ox 96 05/20/20 22:00
[2020-05-21] MEDS: LOSARTAN 50 MG TAB PO SCH (09:32)
[2020-05-21] MEDS: APIXABAN 5 MG TAB PO SCH ×2 (09:32→21:07)
[2020-05-21] MEDS: risperiDONE 0.25 MG TAB PO SCH ×2 (09:32→21:28)
[2020-05-22] MEDS: APIXABAN 5 MG TAB PO SCH ×2 (09:16→21:17)
[2020-05-22] MEDS: risperiDONE 0.25 MG TAB PO SCH ×2 (09:16→21:16)
[2020-05-22] MEDS: LOSARTAN 50 MG TAB PO SCH (09:17)
--- NOTE | 2020-05-22 10:12 | Progress Note ---
Subjective Date of service: 05/22/20 Principal diagnosis: Vascular dementia with behavior disturbance Subjective Comment: The patient was seen today, she is in the dayroom. She says she feels fine. The patient also says she slept fine. She denies SI/HI or hallucinations of any kind. Reason for continued inpatient treatment: The patient is unable to care fore herself and is awaiting placement. Will plan for a safe discharge once placement is secure. REVIEW OF SYSTEMS Constitutional: Negative for weight loss ENT: Negative for strider Respiratory: Negative for cough or hemoptysis All other systems reviewed and are negative MENTAL STATUS EXAMINATION General Appearance and Behavior: Age appropriate, good hygiene, wearing appropriate clothes, cooperative polite with questioning. Cooperation: cooperative Psychomotor Behavior: Psychomotor normal Mood: good Affect and affective range: congruent with mood Thought Process: within reality Thought Content: logical Speech: Normal volume, Regular rate and rhythm, Intellectual Functioning: Average Suicidal Ideation: denies Homicidal Ideation: denies Impulse Control: Unimpaired Insight and Judgment: normal insight and judgment Memory: intact Attention: Normal Orientation: Alert, but oriented Assessment and Plan (1) Vascular dementia with behavior disturbance Current Visit: Yes Status: Acute USING SLUMS SCORING SYSTEM: Patient had a score of 17 which puts her in the Dementia category. Treatment Plan Patient admitted for inpatient psychiatric evaluation, medication adjustment and close monitoring The patient's behavior, mood, sleep and appetite will be closely monitored. Patient enrolled in individual and group therapeutic sessions and encouraged to attend. Patient provided with a safe and structured environment. Patient's physical health needs will be addressed by the Hospitalist. Hospitalist Consulted Labs including CBC, CMP, Lipid profile and Hemoglobin A1C levels ordered for baseline reference Social Assessment will be completed and the Cage Loader will work with patient and family to ensure a suitable and safe disposition Medication adjustment will be made as clinically indicated No changes made today Usual Wellness [employer]/Preservation: - Start Trazodone 50 mg po QHS & 50 mg po QHS PRN between 10 PM & 2 AM for insomnia - Start Melatonin 5 mg po QHS to promote circadian rhythm - Start [place]-3 for brain health, reduce impulsivity, and as adjunctive treatment for mood disorder, continue upon discharge given overall benefits. - Start B1 prophylaxis with 200 mg po for 5 days The patient agreed on the treatment plan, understood the risk, benefit, alternative treatment, potential consequence of no treatment, and gave informed consent. Estimated days: 5 Outpatient treatment upon discharge Medications and Allergies Allergies Allergy/AdvReac Type Severity Reaction Status Date / Time No Known Allergies Allergy Unverified 05/18/20 06:48 Home Medications Medication Instructions Recorded Confirmed Last Taken Type Apixaban [Eliquis] 5 mg PO BID 05/18/20 05/18/20 Unknown History Atorvastatin (Nf) [Lipitor (Nf)] 10 mg PO QHS 05/18/20 05/18/20 Unknown History FLUoxetine HCL [Prozac] 20 mg PO DAILY 05/18/20 05/18/20 Unknown History Losartan [Cozaar] 50 mg PO QDAY 05/18/20 05/18/20 Unknown History busPIRone [Buspar] 5 mg PO BID PRN 05/18/20 05/18/20 Unknown History cloNIDine [Catapres] 0.1 mg PO BID PRN 05/18/20 05/18/20 Unknown History Active Meds: Active Medications Apixaban (Apixaban 5 Mg Tab) 5 mg PO BID [facility]; Protocol Last Admin: 05/22/20 09:16 Dose: 5 mg Documented by: Atorvastatin Calcium (Atorvastatin 10 Mg Tab) 10 mg PO QHS [facility] Last Admin: 05/21/20 21:07 Dose: 10 mg Documented by: Buspirone HCl (Buspirone 5 Mg Tab) 5 mg PO BID PRN PRN Reason: Anxiety Last Admin: 05/18/20 20:20 Dose: 5 mg Documented by: Clonidine HCl (Clonidine 0.1 Mg Tab) 0.1 mg PO BID PRN PRN Reason: Anxiety Lorazepam (Lorazepam 2 Mg/Ml Vial) 1 mg IM Q4H PRN PRN Reason: Agitation Losartan Potassium (Losartan 50 Mg Tab) 50 mg PO QDAY [facility] Last Admin: 05/22/20 09:17 Dose: Not Given Documented by: Risperidone (Risperidone 0.25 Mg Tab) 0.5 mg PO BID [facility] Last Admin: 05/22/20 09:16 Dose: 0.5 mg Documented by: Ziprasidone (Ziprasidone Mesylate 20 Mg Vial) 5 mg IM Q4H PRN PRN Reason: Agitation Results - Results Labs/Vitals: Laboratory Last Values WBC 8.1 K/mm3 (4.5-11.0) 05/19/20 00:27 RBC 4.45 M/mm3 (3.65-5.03) 05/19/20 00: Hgb 13.4 gm/dl (10.1-14.3) 05/19/20 00: Hct 40.3 % (30.3-42.9) 05/19/20 00: MCV 91 fl (79-97) 05/19/20 00: MCH 30 pg (28-32) 05/19/20 00: MCHC 33 % (30-34) 05/19/20 00: RDW 14.1 % (13.2-15.2) 05/19/20 00: Plt Count 235 K/mm3 (140-440) 05/19/20 00: Lymph % (Auto) 29.5 % (13.4-35.0) 05/19/20 00: [place] % (Auto) 10.3 % (0.0-7.3) H 05/19/20 00: Eos % (Auto) 2.9 % (0.0-4.3) 05/19/20 00: Baso % (Auto) 1.0 % (0.0-1.8) 05/19/20 00: Lymph # (Auto) 2.4 K/mm3 (1.2-5.4) 05/19/20 00: [place] # (Auto) 0.8 K/mm3 (0.0-0.8) 05/19/20 00: Eos # (Auto) 0.2 K/mm3 (0.0-0.4) 05/19/20 00: Baso # (Auto) 0.1 K/mm3 (0.0-0.1) 05/19/20 00: Seg Neutrophils % 56.3 % (40.0-70.0) 05/19/20 00: Seg Neutrophils # 4.5 K/mm3 (1.8-7.7) 05/19/20 00: Sodium 133 mmol/L (137-145) L 05/19/20 00: Potassium 3.6 mmol/L (3.6-5.0) 05/19/20 00: Chloride 99.0 mmol/L (98-107) 05/19/20 00: Carbon Dioxide 26 mmol/L (22-30) 05/19/20 00:27 Anion Gap 12 mmol/L 05/19/20 00:27 BUN 14 mg/dL (7-17) 05/19/20 00:27 Creatinine 0.7 mg/dL (0.6-1.2) 05/19/20 00:27 Estimated GFR > 60 ml/min 05/19/20 00: BUN/Creatinine Ratio 20 % 05/19/20 00:27 Glucose 86 mg/dL (65-100) 05/19/20 00: POC Glucose 124 mg/dL (70-105) H 05/18/20 19:41 Hemoglobin A1c 5.6 % (4-6) 05/19/20 00: Calcium 9.2 mg/dL (8.4-10.2) 05/19/20 00: Total Bilirubin 0.40 mg/dL (0.1-1.2) 05/19/20 00: AST 34 units/L (5-40) 05/19/20 00: ALT 25 units/L (7-56) 05/19/20 00: Alkaline Phosphatase 103 units/L (35-129) 05/19/20 00: Total Protein 7.3 g/dL (6.3-8.2) 05/19/20 00: Albumin 4.0 g/dL (3.9-5) 05/19/20 00: Albumin/Globulin Ratio 1.2 % 05/19/20 00:27 Triglycerides 68 mg/dL (2-149) 05/19/20 00: Cholesterol 154 mg/dL (50-199) 05/19/20 00:27 LDL Cholesterol Direct 89 mg/dL (50-130) 05/19/20 00:27 HDL Cholesterol 69 mg/dL (40-59) H 05/19/20 00:27 Cholesterol/HDL Ratio 2.23 % 05/19/20 00:27 TSH 3.910 mlU/mL (0.270-4.200) 05/19/20 00:27 Last Vital Signs Temp 98.8 F 05/22/20 08:16 Pulse 86 05/22/20 09:17 Resp 20 05/22/20 08:16 BP 94/62 05/22/20 09:17 Pulse Ox 98 05/22/20 08:16
--- NOTE | 2020-05-23 09:23 | Progress Note ---
Subjective Date of service: 05/23/20 Principal diagnosis: Vascular dementia with behavior disturbance Subjective Comment: Per Nurse Note: The patient was seen today, she's in her room getting dressed. She says she feels pretty good and slept good. She denies SI/HI or hallucinations of any kin d. Reason for continued inpatient treatment: The patient is unable to care fore herself and is awaiting placement. Will plan for a safe discharge once placement is secure. REVIEW OF SYSTEMS Constitutional: Negative for weight loss ENT: Negative for strider Respiratory: Negative for cough or hemoptysis All other systems reviewed and are negative MENTAL STATUS EXAMINATION General Appearance and Behavior: Age appropriate, good hygiene, wearing appropriate clothes, cooperative polite with questioning. Cooperation: cooperative Psychomotor Behavior: Psychomotor normal Mood: good Affect and affective range: congruent with mood Thought Process: within reality Thought Content: logical Speech: Normal volume, Regular rate and rhythm, Intellectual Functioning: Average Suicidal Ideation: denies Homicidal Ideation: denies Impulse Control: Unimpaired Insight and Judgment: normal insight and judgment Memory: intact Attention: Normal Orientation: Alert, but oriented Assessment and Plan (1) Vascular dementia with behavior disturbance Current Visit: Yes Status: Acute USING SLUMS SCORING SYSTEM: Patient had a score of 17 which puts her in the Dementia category. Treatment Plan Patient admitted for inpatient psychiatric evaluation, medication adjustment and close monitoring The patient's behavior, mood, sleep and appetite will be closely monitored. Patient enrolled in individual and group therapeutic sessions and encouraged to attend. Patient provided with a safe and structured environment. Patient's physical health needs will be addressed by the Hospitalist. Hospit alist Consulted Labs including CBC, CMP, Lipid profile and Hemoglobin A1C levels ordered for baseline reference Social Assessment will be completed and the Customer Relations Advisor will work with patient and family to ensure a suitable and safe disposition Medication adjustment will be made as clinically indicated No changes made today Usual Wellness Roman Catholic/Preservation: - Start Trazodone 50 mg po QHS & 50 mg po QHS PRN between 10 PM & 2 AM for insomnia - Start Melatonin 5 mg po QHS to promote circadian rhythm - Start [place]-3 for brain health, reduce impulsivity, and as adjunctive treatment for mood disorder, continue upon discharge given overall benefits. - Start B1 prophylaxis with 200 mg po for 5 days The patient agreed on the treatment plan, understood the risk, benefit, alternative treatment, potential consequence of no treatment, and gave informed consent. Estimated days: 5 Outpatient treatment upon discharge Medications and Allergies Allergies Allergy/AdvReac Type Severity Reaction Status Date / Time No Known Allergies Allergy Unverified 05/18/20 06:48 Home Medications Medication Instructions Recorded Confirmed Last Taken Type Apixaban [Eliquis] 5 mg PO BID 05/18/20 05/18/20 Unknown History Atorvastatin (Nf) [Lipitor (Nf)] 10 mg PO QHS 05/18/20 05/18/20 Unknown History FLUoxetine HCL [Prozac] 20 mg PO DAILY 05/18/20 05/18/20 Unknown History Losartan [Cozaar] 50 mg PO QDAY 05/18/20 05/18/20 Unknown History busPIRone [Buspar] 5 mg PO BID PRN 05/18/20 05/18/20 Unknown History cloNIDine [Catapres] 0.1 mg PO BID PRN 05/18/20 05/18/20 Unknown History Active Meds: Active Medications Apixaban (Apixaban 5 Mg Tab) 5 mg PO BID [facility]; Protocol Last Admin: 05/22/20 21:17 Dose: 5 mg Documented by: Atorvastatin Calcium (Atorvastatin 10 Mg Tab) 10 mg PO QHS [facility] Last Admin: 05/22/20 21:16 Dose: 10 mg Documented by: Buspirone HCl (Buspirone 5 Mg Tab) 5 mg PO BID PRN PRN Reason: Anxiety Last Admin: 05/18/20 20:20 Dose: 5 mg Documented by: Clonidine HCl (Clonidine 0.1 Mg Tab) 0.1 mg PO BID PRN PRN Reason: Anxiety Lorazepam (Lorazepam 2 Mg/Ml Vial) 1 mg IM Q4H PRN PRN Reason: Agitation Losartan Potassium (Losartan 50 Mg Tab) 50 mg PO QDAY [facility] Last Admin: 05/22/20 09:17 Dose: Not Given Documented by: Risperidone (Risperidone 0.25 Mg Tab) 0.5 mg PO BID [facility] Last Admin: 05/22/20 21:16 Dose: 0.5 mg Documented by: Ziprasidone (Ziprasidone Mesylate 20 Mg Vial) 5 mg IM Q4H PRN PRN Reason: Agitation Results - Results Labs/Vitals: Laboratory Last Values WBC 8.1 K/mm3 (4.5-11.0) 05/19/20 00:27 RBC 4.45 M/mm3 (3.65-5.03) 05/19/20 00: Hgb 13.4 gm/dl (10.1-14.3) 05/19/20 00: Hct 40.3 % (30.3-42.9) 05/19/20 00: MCV 91 fl (79-97) 05/19/20 00: MCH 30 pg (28-32) 05/19/20: MCHC 33 % (30-34) 05/19/20 00: RDW 14.1 % (13.2-15.2) 05/19/20 00: Plt Count 235 K/mm3 (140-440) 05/19/20 00: Lymph % (Auto) 29.5 % (13.4-35.0) 05/19/20 00: [place] % (Auto) 10.3 % (0.0-7.3) H 05/19/20 00: Eos % (Auto) 2.9 % (0.0-4.3) 05/19/20 00: Baso % (Auto) 1.0 % (0.0-1.8) 05/19/20 00: Lymph # (Auto) 2.4 K/mm3 (1.2-5.4) 05/19/20 00: [place] # (Auto) 0.8 K/mm3 (0.0-0.8) 05/19/20 00: Eos # (Auto) 0.2 K/mm3 (0.0-0.4) 05/19/20 00: Baso # (Auto) 0.1 K/mm3 (0.0-0.1) 05/19/20 00: Seg Neutrophils % 56.3 % (40.0-70.0) 05/19/20 00: Seg Neutrophils # 4.5 K/mm3 (1.8-7.7) 05/19/20 00: Sodium 133 mmol/L (137-145) L 05/19/20 00: Potassium 3.6 mmol/L (3.6-5.0) 05/19/20 00: Chloride 99.0 mmol/L (98-107) 05/19/20 00: Carbon Dioxide 26 mmol/L (22-30) 03/23/21 00:27 Anion Gap 12 mmol/L 05/19/20 00:27 BUN 14 mg/dL (7-17) 05/19/20 00:27 Creatinine 0.7 mg/dL (0.6-1.2) 05/19/20 00:27 Estimated GFR > 60 ml/min 05/19/20 00: BUN/Creatinine Ratio 20 % 05/19/20 00:27 Glucose 86 mg/dL (65-100) 05/19/20 00:27 POC Glucose 124 mg/dL (70-105) H 05/18/20 19:41 Hemoglobin A1c 5.6 % (4-6) 05/19/20 00:27 Calcium 9.2 mg/dL (8.4-10.2) 05/19/20 00:27 Total Bilirubin 0.40 mg/dL (0.1-1.2) 05/19/20 00:27 AST 34 units/L (5-40) 05/19/20 00: ALT 25 units/L (7-56) 05/19/20 00:27 Alkaline Phosphatase 103 units/L (35-129) 05/19/20 00:27 Total Protein 7.3 g/dL (6.3-8.2) 05/19/20 00:27 Albumin 4.0 g/dL (3.9-5) 05/19/20 00: Albumin/Globulin Ratio 1.2 % 05/19/20 00:27 Triglycerides 68 mg/dL (2-149) 05/19/20 00:27 Cholesterol 154 mg/dL (50-199) 05/19/20 00:27 LDL Cholesterol Direct 89 mg/dL (50-130) 05/19/20 00:27 HDL Cholesterol 69 mg/dL (40-59) H 05/19/20 00:27 Cholesterol/HDL Ratio 2.23 % 05/19/20 00:27 TSH 3.910 mlU/mL (0.270-4.200) 05/19/20 00:27 Last Vital Signs Temp 97.9 F 05/22/20 19:28 Pulse 86 05/22/20 19:28 Resp 16 05/22/20 19:28 BP 97/45 05/22/20 19:28 Pulse Ox 95 05/22/20 19:28
[2020-05-23] MEDS: risperiDONE 0.25 MG TAB PO SCH ×2 (10:33→21:47)
[2020-05-23] MEDS: APIXABAN 5 MG TAB PO SCH ×2 (10:33→21:47)
[2020-05-23] MEDS: LOSARTAN 50 MG TAB PO SCH (10:33)
[2020-05-24] MEDS: risperiDONE 0.25 MG TAB PO SCH ×2 (09:23→21:00)
[2020-05-24] MEDS: APIXABAN 5 MG TAB PO SCH ×2 (09:23→21:00)
--- NOTE | 2020-05-24 09:23 | Progress Note ---
Subjective Date of service: 05/24/20 Principal diagnosis: Vascular dementia with behavior disturbance Subjective Comment: Per Nurse Note: Due meds given with HS snack,tolerated them well.Pt back to the room with without any hesitation. No SI/LINTON voiced or noted. Call light with reach. Will cont. monitor closely. The patient was seen today, she says she's in a good mood. She says she slept well. She denies SI/HI or hallucinations of any kind. Reason for continued inpatient treatment: The patient is unable to care fore herself and is awaiting placement. Will plan for a safe discharge once placement is secure. REVIEW OF SYSTEMS Constitutional: Negative for weight loss ENT: Negative for strider Respiratory: Negative for cough or hemoptysis All other systems reviewed and are negative MENTAL STATUS EXAMINATION General Appearance and Behavior: Age appropriate, good hygiene, wearing appropriate clothes, cooperative polite with questioning. Cooperation: cooperative Psychomotor Behavior: Psychomotor normal Mood: good Affect and affective range: congruent with mood Thought Process: within reality Thought Content: logical Speech: Normal volume, Regular rate and rhythm, Intellectual Functioning: Average Suicidal Ideation: denies Homicidal Ideation: denies Impulse Control: Unimpaired Insight and Judgment: normal insight and judgment Memory: intact Attention: Normal Orientation: Alert, but oriented Assessment and Plan (1) Vascular dementia with behavior disturbance Current Visit: Yes Status: Acute USING SLUMS SCORING SYSTEM: Patient had a score of 17 which puts her in the Dementia category. Treatment Plan Patient admitted for inpatient psychiatric evaluation, medication adjustment and close monitoring The patient's behavior, mood, sleep and appetite will be closely monitored. Patient enrolled in individual and group therapeutic sessions and encouraged to attend. Patient provided with a safe and structured environment. Patient's physical health needs will be addressed by the Hospitalist. Hospitalist Consulted Labs including CBC, CMP, Lipid profile and Hemoglobin A1C levels ordered for baseline reference Social Assessment will be completed and the Work Over Rig Operator will work with patient and family to ensure a suitable and safe disposition Medication adjustment will be made as clinically indicated No changes made today Usual Wellness Yazidism/Preservation: - Start Trazodone 50 mg po QHS & 50 mg po QHS PRN between 10 PM & 2 AM for insomnia - Start Melatonin 5 mg po QHS to promote circadian rhythm - Start [place]-3 for brain health, reduce impulsivity, and as adjunctive treatment for mood disorder, continue upon discharge given overall benefits. - Start B1 prophylaxis with 200 mg po for 5 days The patient agreed on the treatment plan, understood the risk, benefit, alternative treatment, potential consequence of no treatment, and gave informed consent. Estimated days: 4 Outpatient treatment upon discharge Case staffed with Dr. Fine Medications and Allergies Allergies Allergy/AdvReac Type Severity Reaction Status Date / Time No Known Allergies Allergy Unverified 05/18/20 06:48 Home Medications Medication Instructions Recorded Confirmed Last Taken Type Apixaban [Eliquis] 5 mg PO BID 05/18/20 05/18/20 Unknown History Atorvastatin (Nf) [Lipitor (Nf)] 10 mg PO QHS 05/18/20 05/18/20 Unknown History FLUoxetine HCL [Prozac] 20 mg PO DAILY 05/18/20 05/18/20 Unknown History Losartan [Cozaar] 50 mg PO QDAY 05/18/20 05/18/20 Unknown History busPIRone [Buspar] 5 mg PO BID PRN 05/18/20 05/18/20 Unknown History cloNIDine [Catapres] 0.1 mg PO BID PRN 05/18/20 05/18/20 Unknown History Active Meds: Active Medications Apixaban (Apixaban 5 Mg Tab) 5 mg PO BID [facility]; Protocol Last Admin: 05/23/20 21:47 Dose: 5 mg Documented by: Atorvastatin Calcium (Atorvastatin 10 Mg Tab) 10 mg PO QHS [facility] Last Admin: 05/23/20 21:47 Dose: 10 mg Documented by: Buspirone HCl (Buspirone 5 Mg Tab) 5 mg PO BID PRN PRN Reason: Anxiety Last Admin: 05/18/20 20:20 Dose: 5 mg Documented by: Clonidine HCl (Clonidine 0.1 Mg Tab) 0.1 mg PO BID PRN PRN Reason: Anxiety Lorazepam (Lorazepam 2 Mg/Ml Vial) 1 mg IM Q4H PRN PRN Reason: Agitation Losartan Potassium (Losartan 50 Mg Tab) 50 mg PO QDAY [facility] Last Admin: 05/23/20 10:33 Dose: 50 mg Documented by: Risperidone (Risperidone 0.25 Mg Tab) 0.5 mg PO BID [facility] Last Admin: 05/23/20 21:47 Dose: 0.5 mg Documented by: Ziprasidone (Ziprasidone Mesylate 20 Mg Vial) 5 mg IM Q4H PRN PRN Reason: Agitation Results - Results Labs/Vitals: Laboratory Last Values WBC 8.1 K/mm3 (4.5-11.0) 05/19/20 00: RBC 4.45 M/mm3 (3.65-5.03) 05/19/20 00: Hgb 13.4 gm/dl (10.1-14.3) 05/19/20 00: Hct 40.3 % (30.3-42.9) 05/19/20 00: MCV 91 fl (79-97) 05/19/20 00: MCH 30 pg (28-32) 05/19/20 00: MCHC 33 % (30-34) 05/19/20 00: RDW 14.1 % (13.2-15.2) 05/19/20 00: Plt Count 235 K/mm3 (140-440) 05/19/20 00: Lymph % (Auto) 29.5 % (13.4-35.0) 05/19/20 00: [place] % (Auto) 10.3 % (0.0-7.3) H 05/19/20 00: Eos % (Auto) 2.9 % (0.0-4.3) 05/19/20 00: Baso % (Auto) 1.0 % (0.0-1.8) 05/19/20 00: Lymph # (Auto) 2.4 K/mm3 (1.2-5.4) 05/19/20 00: [place] # (Auto) 0.8 K/mm3 (0.0-0.8) 05/19/20 00: Eos # (Auto) 0.2 K/mm3 (0.0-0.4) 05/19/20 00: Baso # (Auto) 0.1 K/mm3 (0.0-0.1) 05/19/20 00: Seg Neutrophils % 56.3 % (40.0-70.0) 05/19/20 00: Seg Neutrophils # 4.5 K/mm3 (1.8-7.7) 05/19/20 00: Sodium 133 mmol/L (137-145) L 05/19/20 00: Potassium 3.6 mmol/L (3.6-5.0) 05/19/20 00:27 Chloride 99.0 mmol/L (98-107) 05/19/20 00:27 Carbon Dioxide 26 mmol/L (22-30) 05/19/20 00:27 Anion Gap 12 mmol/L 05/19/20 00:27 BUN 14 mg/dL (7-17) 05/19/20 00:27 Creatinine 0.7 mg/dL (0.6-1.2) 05/19/20 00:27 Estimated GFR > 60 ml/min 05/19/20 00: BUN/Creatinine Ratio 20 % 05/19/20 00:27 Glucose 86 mg/dL (65-100) 05/19/20 00: POC Glucose 124 mg/dL (70-105) H 05/18/20 19:41 Hemoglobin A1c 5.6 % (4-6) 05/19/20 00:27 Calcium 9.2 mg/dL (8.4-10.2) 05/19/20 00:27 Total Bilirubin 0.40 mg/dL (0.1-1.2) 05/19/20 00:27 AST 34 units/L (5-40) 05/19/20 00:27 ALT 25 units/L (7-56) 05/19/20 00:27 Alkaline Phosphatase 103 units/L (35-129) 05/19/20 00:27 Total Protein 7.3 g/dL (6.3-8.2) 05/19/20 00:27 Albumin 4.0 g/dL (3.9-5) 05/19/20 00: Albumin/Globulin Ratio 1.2 % 05/19/20 00:27 Triglycerides 68 mg/dL (2-149) 05/19/20 00:27 Cholesterol 154 mg/dL (50-199) 05/19/20 00:27 LDL Cholesterol Direct 89 mg/dL (50-130) 05/19/20 00:27 HDL Cholesterol 69 mg/dL (40-59) H 05/19/20 00:27 Cholesterol/HDL Ratio 2.23 % 05/19/20 00:27 TSH 3.910 mlU/mL (0.270-4.200) 05/19/20 00:27 Last Vital Signs Temp 98.6 F 05/24/20 08:27 Pulse 73 05/24/20 08:27 Resp 18 05/24/20 08:27 BP 100/54 05/24/20 08:27 Pulse Ox 98 05/24/20 08:27
[2020-05-24] MEDS: LOSARTAN 50 MG TAB PO SCH (09:24)
--- NOTE | 2020-05-25 09:14 | Progress Note ---
Subjective Date of service: 05/25/20 Principal diagnosis: Vascular dementia with behavior disturbance Subjective Comment: Per Nurse Note: pt spent the evening in activity room interacting appropriately with peers, pleasant, mood is stable, bright affect, able to make needs known, medication compliant, good appetite, no behavioral issue, no complaints voiced, no distress noted, will continue to monitor for safety. The patient was seen today, she says she is not feeling well today. The patient says her chest and left arm are hurting. She says this started in the middle of the night. The patient denies SI/HI or hallucinations of any kind. Nurse caring for patient informed to page hospitalist. Hospitalist paged. Reason for continued inpatient treatment: The patient is unable to care fore herself and is awaiting placement. Will plan for a safe discharge once placement is secure. REVIEW OF SYSTEMS Constitutional: Negative for weight loss ENT: Negative for strider Respiratory: Negative for cough or hemoptysis All other systems reviewed and are negative MENTAL STATUS EXAMINATION General Appearance and Behavior: Age appropriate, good hygiene, wearing appropriate clothes, cooperative polite with questioning. Cooperation: cooperative Psychomotor Behavior: Psychomotor normal Mood: good Affect and affective range: congruent with mood Thought Process: within reality Thought Content: logical Speech: Normal volume, Regular rate and rhythm, Intellectual Functioning: Average Suicidal Ideation: denies Homicidal Ideation: denies Impulse Control: Unimpaired Insight and Judgment: normal insight and judgment Memory: intact Attention: Normal Orientation: Alert, but oriented Assessment and Plan (1) Vascular dementia with behavior disturbance Current Visit: Yes Status: Acute USING SLUMS SCORING SYSTEM: Patient had a score of 17 which puts her in the Dementia category. Treatment Plan Patient admitted for inpatient psychiatric evaluation, medication adjustment and close monitoring The patient's behavior, mood, sleep and appetite will be closely monitored. Patient enrolled in individual and group therapeutic sessions and encouraged to attend. Patient provided with a safe and structured environment. Patient's physical health needs will be addressed by the Hospitalist. Hospitalist Consulted Labs including CBC, CMP, Lipid profile and Hemoglobin A1C levels ordered for baseline reference Social Assessment will be completed and the It Operations Analyst will work with patient and family to ensure a suitable and safe disposition Medication adjustment will be made as clinically indicated No changes made today Usual Wellness Taoism/Preservation: - Start Trazodone 50 mg po QHS & 50 mg po QHS PRN between 10 PM & 2 AM for insomnia - Start Melatonin 5 mg po QHS to promote circadian rhythm - Start [place]-3 for brain health, reduce impulsivity, and as adjunctive treatment for mood disorder, continue upon discharge given overall benefits. - Start B1 prophylaxis with 200 mg po for 5 days The patient agreed on the treatment plan, understood the risk, benefit, alternative treatment, potential consequence of no treatment, and gave informed consent. Estimated days: 2 Outpatient treatment upon discharge Case staffed with Dr. Fine Medications and Allergies Allergies Allergy/AdvReac Type Severity Reaction Status Date / Time No Known Allergies Allergy Unverified 05/18/20 06:48 Home Medications Medication Instructions Recorded Confirmed Last Taken Type Apixaban [Eliquis] 5 mg PO BID 05/18/20 05/18/20 Unknown History Atorvastatin (Nf) [Lipitor (Nf)] 10 mg PO QHS 05/18/20 05/18/20 Unknown History FLUoxetine HCL [Prozac] 20 mg PO DAILY 05/18/20 05/18/20 Unknown History Losartan [Cozaar] 50 mg PO QDAY 05/18/20 05/18/20 Unknown History busPIRone [Buspar] 5 mg PO BID PRN 05/18/20 05/18/20 Unknown History cloNIDine [Catapres] 0.1 mg PO BID PRN 05/18/20 05/18/20 Unknown History Active Meds: Active Medications Apixaban (Apixaban 5 Mg Tab) 5 mg PO BID [facility]; Protocol Last Admin: 05/24/20 21:00 Dose: 5 mg Documented by: Atorvastatin Calcium (Atorvastatin 10 Mg Tab) 10 mg PO QHS [facility] Last Admin: 05/24/20 21:00 Dose: 10 mg Documented by: Buspirone HCl (Buspirone 5 Mg Tab) 5 mg PO BID PRN PRN Reason: Anxiety Last Admin: 05/18/20 20:20 Dose: 5 mg Documented by: Clonidine HCl (Clonidine 0.1 Mg Tab) 0.1 mg PO BID PRN PRN Reason: Anxiety Lorazepam (Lorazepam 2 Mg/Ml Vial) 1 mg IM Q4H PRN PRN Reason: Agitation Losartan Potassium (Losartan 50 Mg Tab) 50 mg PO QDAY [facility] Last Admin: 05/24/20 09:24 Dose: Not Given Documented by: Risperidone (Risperidone 0.25 Mg Tab) 0.5 mg PO BID [facility] Last Admin: 05/24/20 21:00 Dose: 0.5 mg Documented by: Ziprasidone (Ziprasidone Mesylate 20 Mg Vial) 5 mg IM Q4H PRN PRN Reason: Agitation Results - Results Labs/Vitals: Laboratory Last Values WBC 8.1 K/mm3 (4.5-11.0) 05/19/20 00:27 RBC 4.45 M/mm3 (3.65-5.03) 05/19/20 00:27 Hgb 13.4 gm/dl (10.1-14.3) 05/19/20 00:27 Hct 40.3 % (30.3-42.9) 05/19/20 00: MCV 91 fl (79-97) 05/19/20 00: MCH 30 pg (28-32) 05/19/20 00: MCHC 33 % (30-34) 05/19/20 00: RDW 14.1 % (13.2-15.2) 05/19/20 00:27 Plt Count 235 K/mm3 (140-440) 05/19/20 00:27 Lymph % (Auto) 29.5 % (13.4-35.0) 05/19/20 00:27 [place] % (Auto) 10.3 % (0.0-7.3) H 05/19/20 00:27 Eos % (Auto) 2.9 % (0.0-4.3) 05/19/20 00:27 Baso % (Auto) 1.0 % (0.0-1.8) 05/19/20 00: Lymph # (Auto) 2.4 K/mm3 (1.2-5.4) 05/19/20 00:27 [place] # (Auto) 0.8 K/mm3 (0.0-0.8) 05/19/20 00:27 Eos # (Auto) 0.2 K/mm3 (0.0-0.4) 05/19/20 00: Baso # (Auto) 0.1 K/mm3 (0.0-0.1) 05/19/20 00:27 Seg Neutrophils % 56.3 % (40.0-70.0) 05/19/20 00: Seg Neutrophils # 4.5 K/mm3 (1.8-7.7) 05/19/20 00:27 Sodium 133 mmol/L (137-145) L 05/19/20 00:27 Potassium 3.6 mmol/L (3.6-5.0) 05/19/20 00:27 Chloride 99.0 mmol/L (98-107) 05/19/20 00:27 Carbon Dioxide 26 mmol/L (22-30) 05/19/20 00: Anion Gap 12 mmol/L 05/19/20 00: BUN 14 mg/dL (7-17) 05/19/20 00:27 Creatinine 0.7 mg/dL (0.6-1.2) 05/19/20 00: Estimated GFR > 60 ml/min 05/19/20 00: BUN/Creatinine Ratio 20 % 05/19/20 00: Glucose 86 mg/dL (65-100) 05/19/20 00: POC Glucose 124 mg/dL (70-105) H 05/18/20 19:41 Hemoglobin A1c 5.6 % (4-6) 05/19/20 00: Calcium 9.2 mg/dL (8.4-10.2) 05/19/20 00:27 Total Bilirubin 0.40 mg/dL (0.1-1.2) 05/19/20 00: AST 34 units/L (5-40) 05/19/20 00: ALT 25 units/L (7-56) 05/19/20 00: Alkaline Phosphatase 103 units/L (35-129) 05/19/20 00: Total Protein 7.3 g/dL (6.3-8.2) 05/19/20 00: Albumin 4.0 g/dL (3.9-5) 05/19/20 00: Albumin/Globulin Ratio 1.2 % 05/19/20 00: Triglycerides 68 mg/dL (2-149) 05/19/20 00: Cholesterol 154 mg/dL (50-199) 05/19/20 00:27 LDL Cholesterol Direct 89 mg/dL (50-130) 05/19/20 00:27 HDL Cholesterol 69 mg/dL (40-59) H 05/19/20 00:27 Cholesterol/HDL Ratio 2.23 % 05/19/20 00:27 TSH 3.910 mlU/mL (0.270-4.200) 05/19/20 00:27 Last Vital Signs Temp 97.6 F 05/25/20 06:17 Pulse 83 05/25/20 06:17 Resp 14 05/25/20 06:17 BP 119/54 05/25/20 06:17 Pulse Ox 96 05/25/20 06:17
[2020-05-25] MEDS: LOSARTAN 50 MG TAB PO SCH (09:36)
[2020-05-25] MEDS: risperiDONE 0.25 MG TAB PO SCH ×2 (09:36→21:52)
[2020-05-25] MEDS: APIXABAN 5 MG TAB PO SCH ×2 (09:36→21:53)
--- NOTE | 2020-05-25 11:41 | Progress Note ---
Assessment and Plan Assessment and plan: 80 year Female with Vascular Dementia with Behavioral Disturbance, Cerebral Atheroscleosis, HTN, HLD currently on therapeutic anticoagulation admitted to geriatric psychiatry for psychiatric stabilization. Consult placed for medical management. Patient seen and evaluated in her room. Patient is cooperative with exam and interview. Patient denies fever, chills, chest pain, palpitations, shortness of breath, difficulty breathing, productive cough, recent ill contacts, or known exposure to COVID 19. No reported nursing events. Atypical chest pain: Check EKG, Troponin, likely musculoskeletal pain. Will also check xray of the shoulder. continue to monitor. History Interval history: Patient seen and examined, no new complaints. Earlier today complained of chest pain, on examination, wanted me to hear cracking sound when she moves her left shoulder Hospitalist Physical - Physical exam Narrative exam: General appearance: Present: no acute distress, well-nourished - EENT Eyes: Present: PERRL ENT: hearing intact, clear oral mucosa - Neck Neck: Present: supple, normal ROM - Respiratory Respiratory effort: normal Respiratory: bilateral: CTA - Cardiovascular Heart Sounds: Present: S1 & S2. Absent: rub, click - Extremities Extremities: pulses symmetrical, No edema Peripheral Pulses: within normal limits - Abdominal General gastrointestinal: Present: soft, non-tender, non-distended, normal bowel sounds Female genitourinary: Present: normal - Integumentary Integumentary: Present: clear, warm, dry, non tender on palpation - Musculoskeletal Musculoskeletal: gait normal, strength equal bilaterally - Psychiatric Psychiatric: cooperative - Neurologic Neurologic: CNII-XII intact, moves all extremities - Constitutional Vitals: Temp Pulse Resp BP Pulse Ox 97.6 F 82 14 148/82 96 05/25/20 06:17 05/25/20 09:36 05/25/20 06:17 05/25/20 09:36 05/25/20 06:17 General appearance: Present: no acute distress, well-nourished Results - Labs CBC & Chem 7: 05/19/20 00:27 05/19/20 00:27 Labs: Laboratory Last Values WBC 8.1 K/mm3 (4.5-11.0) 05/19/20 00:27 RBC 4.45 M/mm3 (3.65-5.03) 05/19/20 00:27 Hgb 13.4 gm/dl (10.1-14.3) 05/19/20 00: Hct 40.3 % (30.3-42.9) 05/19/20 00: MCV 91 fl (79-97) 05/19/20 00: MCH 30 pg (28-32) 05/19/20: MCHC 33 % (30-34) 05/19/20 00: RDW 14.1 % (13.2-15.2) 05/19/20 00: Plt Count 235 K/mm3 (140-440) 05/19/20 00: Lymph % (Auto) 29.5 % (13.4-35.0) 05/19/20: [place] % (Auto) 10.3 % (0.0-7.3) H 05/19/20 00: Eos % (Auto) 2.9 % (0.0-4.3) 05/19/20 00: Baso % (Auto) 1.0 % (0.0-1.8) 05/19/20 00: Lymph # (Auto) 2.4 K/mm3 (1.2-5.4) 05/19/20 00: [place] # (Auto) 0.8 K/mm3 (0.0-0.8) 05/19/20 00: Eos # (Auto) 0.2 K/mm3 (0.0-0.4) 05/19/20 00: Baso # (Auto) 0.1 K/mm3 (0.0-0.1) 05/19/20 00: Seg Neutrophils % 56.3 % (40.0-70.0) 05/19/20 00: Seg Neutrophils # 4.5 K/mm3 (1.8-7.7) 05/19/20 00: Sodium 133 mmol/L (137-145) L 05/19/20 00: Potassium 3.6 mmol/L (3.6-5.0) 05/19/20 00: Chloride 99.0 mmol/L (98-107) 05/19/20 00: Carbon Dioxide 26 mmol/L (22-30) 05/19/20 00: Anion Gap 12 mmol/L 05/19/20 00: BUN 14 mg/dL (7-17) 05/19/20 00:27 Creatinine 0.7 mg/dL (0.6-1.2) 05/19/20 00:27 Estimated GFR > 60 ml/min 05/19/20 00:27 BUN/Creatinine Ratio 20 % 05/19/20 00:27 Glucose 86 mg/dL (65-100) 05/19/20 00:27 POC Glucose 124 mg/dL (70-105) H 05/18/20 19:41 Hemoglobin A1c 5.6 % (4-6) 05/19/20 00:27 Calcium 9.2 mg/dL (8.4-10.2) 05/19/20 00:27 Total Bilirubin 0.40 mg/dL (0.1-1.2) 05/19/20 00:27 AST 34 units/L (5-40) 05/19/20 00:27 ALT 25 units/L (7-56) 05/19/20 00:27 Alkaline Phosphatase 103 units/L (35-129) 05/19/20 00:27 Total Protein 7.3 g/dL (6.3-8.2) 05/19/20 00:27 Albumin 4.0 g/dL (3.9-5) 05/19/20 00:27 Albumin/Globulin Ratio 1.2 % 05/19/20 00:27 Triglycerides 68 mg/dL (2-149) 05/19/20 00:27 Cholesterol 154 mg/dL (50-199) 05/19/20 00:27 LDL Cholesterol Direct 89 mg/dL (50-130) 05/19/20 00:27 HDL Cholesterol 69 mg/dL (40-59) H 05/19/20 00:27 Cholesterol/HDL Ratio 2.23 % 05/19/20 00:27 TSH 3.910 mlU/mL (0.270-4.200) 05/19/20 00:27 Anthony/IV: Voiding Method Toilet Active Medications - Current Medications Current Medications: Generic Name Dose Route Start Last Admin Trade Name Freq PRN Reason Stop Dose Admin Apixaban 5 mg 05/18/20 22:00 05/25/20 09:36 Apixaban 5 Mg Tab PO 5 mg BID JOSE Administration Protocol Atorvastatin Calcium 10 mg 05/18/20 22:00 05/24/20 21:00 Atorvastatin 10 Mg Tab PO 10 mg QHS JOSE Administration Buspirone HCl 5 mg 05/18/20 12:40 05/18/20 20:20 Buspirone 5 Mg Tab PO 5 mg BID PRN Administration Anxiety Clonidine HCl 0.1 mg 05/18/20 12:40 Clonidine 0.1 Mg Tab PO BID PRN Anxiety Lorazepam 1 mg 05/18/20 16:21 Lorazepam 2 Mg/Ml Vial IM Q4H PRN Agitation Losartan Potassium 50 mg 05/19/20 10:00 05/25/20 09:36 Losartan 50 Mg Tab PO 50 mg QDAY JOSE Administration Risperidone 0.5 mg 05/19/20 10:00 05/25/20 09:36 Risperidone 0.25 Mg Tab PO 0.5 mg BID JOSE Administration Ziprasidone 5 mg 05/18/20 16:21 Ziprasidone Mesylate 20 Mg Vial IM Q4H PRN Agitation Nutrition/Malnutrition Assess - Dietary Evaluation Nutrition/Malnutrition Findings: Nutrition Notes Start: 05/25/20 08:59 Freq: Status: Active Protocol: Document 05/25/20 08:59 (Rec: 05/25/20 09:00 [email or web address]) Nutrition Notes Need for Assessment generated from: LOS Initial or Follow up Brief Note Current Diagnosis Hypertension,Hyperlipidemia Other Pertinent Diagnosis dementia Current Diet regular Subjective/Other Information Screen for LOS. Per chart, pt eating 100% of meals. Nutrition Intervention Revisit per MD consult or patient Sign Off request:
--- NOTE | 2020-05-26 08:46 | XRay Report ---
LEFT SHOULDER 3 VIEWS INDICATION: Pain in left shoulder, no known injury. COMPARISON: None. IMPRESSION: Borderline to mild osteopenia is evident. No acute fracture or bone lesion is detected. There does appear to be mild deformity of the left humeral head suggesting previous chronic healed f racture. There are severe osteoarthritic changes at the glenohumeral joint. An approximate 1.3 cm katy cification overlies the inferior recess of the joint space suggesting a calcified intra-articular for eign body. If further evaluation is needed, MRI should provide the most information. Signer Name: Damion Walsh Jr, MD Signed: 05/26/2020 8:41 AM Workstation Name: [id number]
--- NOTE | 2020-05-26 09:01 | Progress Note ---
Subjective Date of service: 05/26/20 Principal diagnosis: Vascular dementia with behavior disturbance Subjective Comment: Per Nurse Note: Last evening the patient spent interacting appropriately with her peers. She denies si/hi/ah/vh. Her appetite is good. She is medication compliant. Overnight the patient rested quietly presenting as sleeping 8 hours. Will continue to monitor patient for safety. The patient was seen today, she says she is feeling much better today. She is well groomed. She denies SI/HI or hallucinations of any kind. She says she slept well. Reason for continued inpatient treatment: The patient is unable to care fore herself and is awaiting placement. The SW is working on placement to ensue safe discharge. REVIEW OF SYSTEMS Constitutional: Negative for weight loss ENT: Negative for strider Respiratory: Negative for cough or hemoptysis All other systems reviewed and are negative MENTAL STATUS EXAMINATION General Appearance and Behavior: Age appropriate, good hygiene, wearing appropri ate clothes, cooperative polite with questioning. Cooperation: cooperative Psychomotor Behavior: Psychomotor normal Mood: good Affect and affective range: congruent with mood Thought Process: within reality Thought Content: logical Speech: Normal volume, Regular rate and rhythm, Intellectual Functioning: Average Suicidal Ideation: denies Homicidal Ideation: denies Impulse Control: Unimpaired Insight and Judgment: normal insight and judgment Memory: intact Attention: Normal Orientation: Alert, but oriented Assessment and Plan (1) Vascular dementia with behavior disturbance Current Visit: Yes Status: Acute USING SLUMS SCORING SYSTEM: Patient had a score of 17 which puts her in the Dementia category. Treatment Plan Patient admitted for inpatient psychiatric evaluation, medication adjustment and close monitoring The patient's behavior, mood, sleep and appetite will be closely monitored. Patient enrolled in individual and group therapeutic sessions and encouraged to attend. Patient provided with a safe and structured environment. Patient's physical health needs will be addressed by the Hospitalist. Hospitalist Consulted Labs including CBC, CMP, Lipid profile and Hemoglobin A1C levels ordered for baseline reference Social Assessment will be completed and the [facility] will work with patient and family to ensure a suitable and safe disposition Medication adjustment will be made as clinically indicated No changes made today Usual Wellness Religion/Preservation: - Start Trazodone 50 mg po QHS & 50 mg po QHS PRN between 10 PM & 2 AM for insomnia - Start Melatonin 5 mg po QHS to promote circadian rhythm - Start Highland-3 for brain health, reduce impulsivity, and as adjunctive treatment for mood disorder, continue upon discharge given overall benefits. - Start B1 prophylaxis with 200 mg po for 5 days The patient agreed on the treatment plan, understood the risk, benefit, alternative treatment, potential consequence of no treatment, and gave informed consent. Estimated days: 2 Outpatient treatment upon discharge Case staffed with Dr. Fine Medications and Allergies Allergies Allergy/AdvReac Type Severity Reaction Status Date / Time No Known Allergies Allergy Unverified 05/18/20 06:48 Home Medications Medication Instructions Recorded Confirmed Last Taken Type Apixaban [Eliquis] 5 mg PO BID 05/18/20 05/18/20 Unknown History Atorvastatin (Nf) [Lipitor (Nf)] 10 mg PO QHS 05/18/20 05/18/20 Unknown History FLUoxetine HCL [Prozac] 20 mg PO DAILY 05/18/20 05/18/20 Unknown History Losartan [Cozaar] 50 mg PO QDAY 05/18/20 05/18/20 Unknown History busPIRone [Buspar] 5 mg PO BID PRN 05/18/20 05/18/20 Unknown History cloNIDine [Catapres] 0.1 mg PO BID PRN 05/18/20 05/18/20 Unknown History Active Meds: Active Medications Apixaban (Apixaban 5 Mg Tab) 5 mg PO BID [facility]; Protocol Last Admin: 05/25/20 21:53 Dose: 5 mg Documented by: Atorvastatin Calcium (Atorvastatin 10 Mg Tab) 10 mg PO QHS [facility] Last Admin: 05/25/20 21:52 Dose: 10 mg Documented by: Buspirone HCl (Buspirone 5 Mg Tab) 5 mg PO BID PRN PRN Reason: Anxiety Last Admin: 05/18/20 20:20 Dose: 5 mg Documented by: Clonidine HCl (Clonidine 0.1 Mg Tab) 0.1 mg PO BID PRN PRN Reason: Anxiety Lorazepam (Lorazepam 2 Mg/Ml Vial) 1 mg IM Q4H PRN PRN Reason: Agitation Losartan Potassium (Losartan 50 Mg Tab) 50 mg PO QDAY [facility] Last Admin: 05/25/20 09:36 Dose: 50 mg Documented by: Risperidone (Risperidone 0.25 Mg Tab) 0.5 mg PO BID [facility] Last Admin: 05/25/20 21:52 Dose: 0.5 mg Documented by: Ziprasidone (Ziprasidone Mesylate 20 Mg Vial) 5 mg IM Q4H PRN PRN Reason: Agitation Results - Results Labs/Vitals: Laboratory Last Values WBC 8.1 K/mm3 (4.5-11.0) 05/19/20 00:27 RBC 4.45 M/mm3 (3.65-5.03) 05/19/20 00:27 Hgb 13.4 gm/dl (10.1-14.3) 05/19/20 00: Hct 40.3 % (30.3-42.9) 05/19/20 00: MCV 91 fl (79-97) 05/19/20 00: MCH 30 pg (28-32) 05/19/20 00: MCHC 33 % (30-34) 05/19/20 00: RDW 14.1 % (13.2-15.2) 05/19/20 00: Plt Count 235 K/mm3 (140-440) 05/19/20 00: Lymph % (Auto) 29.5 % (13.4-35.0) 05/19/20 00: [place] % (Auto) 10.3 % (0.0-7.3) H 05/19/20 00:27 Eos % (Auto) 2.9 % (0.0-4.3) 05/19/20 00: Baso % (Auto) 1.0 % (0.0-1.8) 05/19/20 00: Lymph # (Auto) 2.4 K/mm3 (1.2-5.4) 05/19/20 00:27 [place] # (Auto) 0.8 K/mm3 (0.0-0.8) 05/19/20 00:27 Eos # (Auto) 0.2 K/mm3 (0.0-0.4) 05/19/20 00: Baso # (Auto) 0.1 K/mm3 (0.0-0.1) 05/19/20 00: Seg Neutrophils % 56.3 % (40.0-70.0) 05/19/20 00: Seg Neutrophils # 4.5 K/mm3 (1.8-7.7) 05/19/20 00: Sodium 133 mmol/L (137-145) L 05/19/20 00:27 Potassium 3.6 mmol/L (3.6-5.0) 05/19/20 00:27 Chloride 99.0 mmol/L (98-107) 05/19/20 00:27 Carbon Dioxide 26 mmol/L (22-30) 05/19/20 00: Anion Gap 12 mmol/L 05/19/20 00: BUN 14 mg/dL (7-17) 05/19/20 00: Creatinine 0.7 mg/dL (0.6-1.2) 05/19/20 00: Estimated GFR > 60 ml/min 05/19/20 00: BUN/Creatinine Ratio 20 % 05/19/20 00:27 Glucose 86 mg/dL (65-100) 05/19/20 00: POC Glucose 124 mg/dL (70-105) H 05/18/20 19:41 Hemoglobin A1c 5.6 % (4-6) 05/19/20 00: Calcium 9.2 mg/dL (8.4-10.2) 05/19/20 00: Total Bilirubin 0.40 mg/dL (0.1-1.2) 05/19/20 00: AST 34 units/L (5-40) 05/19/20 00: ALT 25 units/L (7-56) 05/19/20 00: Alkaline Phosphatase 103 units/L (35-129) 05/19/20 00: Troponin T < 0.010 ng/mL (0.00-0.029) 05/25/20 21:01 Total Protein 7.3 g/dL (6.3-8.2) 05/19/20 00: Albumin 4.0 g/dL (3.9-5) 05/19/20 00: Albumin/Globulin Ratio 1.2 % 05/19/20 00:27 Triglycerides 68 mg/dL (2-149) 05/19/20 00:27 Cholesterol 154 mg/dL (50-199) 05/19/20 00:27 LDL Cholesterol Direct 89 mg/dL (50-130) 05/19/20 00: HDL Cholesterol 69 mg/dL (40-59) H 05/19/20 00:27 Cholesterol/HDL Ratio 2.23 % 05/19/20 00: TSH 3.910 mlU/mL (0.270-4.200) 05/19/20 00:27 Last Vital Signs Temp 98.4 F 05/25/20 19:30 Pulse 89 05/25/20 19:30 Resp 16 05/25/20 19:30 BP 115/66 05/25/20 19:30 Pulse Ox 97 05/25/20 19:30
[2020-05-26] MEDS: risperiDONE 0.25 MG TAB PO SCH ×2 (10:50→21:22)
[2020-05-26] MEDS: LOSARTAN 50 MG TAB PO SCH (10:51)
--- NOTE | 2020-05-26 10:53 | Event Note ---
Date: 05/26/20 Xray reviewed Borderline to mild osteopenia is evident. No acute fracture or bone lesion is detected. There does appear to be mild deformity of the left humeral head suggesting previous chronic healed fracture. There are severe osteoarthritic changes at the glenohumeral joint. An approximate 1.3 cm calcification overlies the inferior recess of the joint space suggesting a calcified intra-articular foreign body. If further evaluation is needed, MRI should provide the most information. Recommend ultram. Will also recommend Orthopedic evaluation outpatient.
[2020-05-26] MEDS: APIXABAN 5 MG TAB PO SCH ×2 (10:54→21:23)
[2020-05-27] MEDS ORDERED: traMADol 50 MG TAB PO PRN (07:30)
--- NOTE | 2020-05-27 09:06 | Discharge Summary ---
Providers - Providers Date of Admission: 05/18/20 06:49 Date of discharge: 05/27/20 Attending physician: DAYLIN JAMISON MD 05/18/20 06:49 Consult to Physician [CONS] Routine Comment: Consulting Provider: JEWEL PARIKH Physician Instructions: Reason For Exam: H&P with managing medical conditions Primary care physician: SKIDDER RUNNER Hospitalization Reason for admission: agitation Admitting Diagnosis: F01.51 - VASCULAR DEMENTIA WITH BEHAVIORAL DISTURBANCE Condition: Stable Hospital course: The patient was provided inpatient psychiatric treatment with safe and supportive care, medication adjustment, adverse effect monitoring, medical evaluations, medical treatments, assessment and psycho-education. The patient's mood, cognition, behavior, moral support are improved and stabilized. St the time of discharge, the patient had no endangering behavior and no debilitating adverse effects. The patient agreed on potential consequences of no treatment and gave informed consent. Disposition: - TO HOME OR SELFCARE Time spent for discharge: 38 Allergies/Adverse Reactions: Allergies No Known Allergies Allergy (Unverified 05/18/20 06:48) Vital Signs: Last Vital Signs Temp 98.2 F 05/26/20 22:00 Pulse 71 05/26/20 22:00 Resp 15 05/26/20 22:00 BP 154/78 05/26/20 22:00 Pulse Ox 98 05/26/20 22:00 Last Lab: Laboratory Last Values WBC 8.1 K/mm3 (4.5-11.0) 05/19/20 00:27 RBC 4.45 M/mm3 (3.65-5.03) 05/19/20 00:27 Hgb 13.4 gm/dl (10.1-14.3) 05/19/20 00:27 Hct 40.3 % (30.3-42.9) 05/19/20 00:27 MCV 91 fl (79-97) 05/19/20 00:27 MCH 30 pg (28-32) 05/19/20 00:27 MCHC 33 % (30-34) 05/19/20 00:27 RDW 14.1 % (13.2-15.2) 05/19/20 00:27 Plt Count 235 K/mm3 (140-440) 05/19/20 00:27 Lymph % (Auto) 29.5 % (13.4-35.0) 05/19/20 00:27 [place] % (Auto) 10.3 % (0.0-7.3) H 05/19/20 00:27 Eos % (Auto) 2.9 % (0.0-4.3) 05/19/20 00:27 Baso % (Auto) 1.0 % (0.0-1.8) 05/19/20 00:27 Lymph # (Auto) 2.4 K/mm3 (1.2-5.4) 05/19/20 00:27 [place] # (Auto) 0.8 K/mm3 (0.0-0.8) 05/19/20 00:27 Eos # (Auto) 0.2 K/mm3 (0.0-0.4) 05/19/20 00:27 Baso # (Auto) 0.1 K/mm3 (0.0-0.1) 05/19/20 00:27 Seg Neutrophils % 56.3 % (40.0-70.0) 05/19/20 00: Seg Neutrophils # 4.5 K/mm3 (1.8-7.7) 05/19/20 00:27 Sodium 133 mmol/L (137-145) L 05/19/20 00:27 Potassium 3.6 mmol/L (3.6-5.0) 05/19/20 00:27 Chloride 99.0 mmol/L (98-107) 05/19/20 00:27 Carbon Dioxide 26 mmol/L (22-30) 05/19/20 00: Anion Gap 12 mmol/L 05/19/20 00:27 BUN 14 mg/dL (7-17) 05/19/20 00:27 Creatinine 0.7 mg/dL (0.6-1.2) 05/19/20 00:27 Estimated GFR > 60 ml/min 05/19/20 00: BUN/Creatinine Ratio 20 % 05/19/20 00:27 Glucose 86 mg/dL (65-100) 05/19/20 00:27 POC Glucose 124 mg/dL (70-105) H 05/18/20 19:41 Hemoglobin A1c 5.6 % (4-6) 05/19/20 00: Calcium 9.2 mg/dL (8.4-10.2) 05/19/20 00:27 Total Bilirubin 0.40 mg/dL (0.1-1.2) 05/19/20 00:27 AST 34 units/L (5-40) 05/19/20 00:27 ALT 25 units/L (7-56) 05/19/20 00:27 Alkaline Phosphatase 103 units/L (35-129) 05/19/20 00:27 Troponin T < 0.010 ng/mL (0.00-0.029) 05/25/20 21:01 Total Protein 7.3 g/dL (6.3-8.2) 05/19/20 00:27 Albumin 4.0 g/dL (3.9-5) 05/19/20 00: Albumin/Globulin Ratio 1.2 % 05/19/20 00:27 Triglycerides 68 mg/dL (2-149) 05/19/20 00: Cholesterol 154 mg/dL (50-199) 05/19/20 00:27 LDL Cholesterol Direct 89 mg/dL (50-130) 05/19/20 00: HDL Cholesterol 69 mg/dL (40-59) H 05/19/20 00:27 Cholesterol/HDL Ratio 2.23 % 05/19/20 00:27 TSH 3.910 mlU/mL (0.270-4.200) 05/19/20 00:27 Core Measure Documentation - Palliative Care Palliative Care/ Comfort Measures: Not Applicable - Core Measures Any of the following diagnoses?: none Exam - Constitutional Vitals: Temp Pulse Resp BP Pulse Ox 98.2 F 71 15 154/78 98 05/26/20 22:00 05/26/20 22:00 05/26/20 22:00 05/26/20 22:00 05/26/20 22:00 General appearance: Present: no acute distress - EENT Eyes: Present: PERRL, EOM intact ENT: hearing intact, clear oral mucosa - Neck Neck: Present: supple, normal ROM - Respiratory Respiratory effort: normal Plan Activity: advance as tolerated Weight Bearing Status: Weight Bear as Tolerated Care Plan Goals: Maintain good and stable mental health Plan of Treatment: The patient should be compliant with medications, not to use drugs, and not to drink alcohol. The patient understands that if suicidal ideas, homicidal ideas or any endangering feeling arise, the patient should seek assistance including, but not limited to crisis hotline, and emergency room. Health Concerns: HLD, HTN Assessment: Vascular Dementia w/Behavioral Disturbance Follow up with: PRIMARY CAREMD [Primary Care Provider] - 7 Days MALICK MARIE MD [Staff Physician] - 7 Days Prescriptions: FLUoxetine HCL [Prozac] 20 mg PO DAILY #30 cap risperiDONE [RisperDAL] 0.5 mg PO BID #60 tablet traMADoL [Ultram 50 MG tab] 25 mg PO Q6H PRN #60 tablet PRN Reason: Pain, Moderate (4-6)
[2020-05-27 09:55] VITALS: BP 113/64
[2020-05-27] MEDS: LOSARTAN 50 MG TAB PO SCH (09:58)
[2020-05-27] MEDS: risperiDONE 0.25 MG TAB PO SCH (09:58)
[2020-05-27] MEDS: APIXABAN 5 MG TAB PO SCH (09:59)
--- NOTE | 2020-05-29 10:25 | Electrocardiograph Report ---
[facility] Test Date: 2020-05-26 Test Time: 09:50:37 Pat Name: MAUREEN SANTILLAN Department: Room: [facility] 1 Gender: F Director Of Outpatient Services: VLADIMIR : 1940 Requested By: EAN SANTOYO Order Number: [id number] Reading MD: Rj Quinonez Measurements Intervals [place] Rate: 77 P: VT: QRS: -7 QRSD: 81 T: 36 QT: 368 QTc: 418 Interpretive Statements Atrial fibrillation Low voltage, extremity leads No previous ECG available for comparison Electronically Signed On 05-29-2020 10:25:04 EDT by Rj Quinonez
== END 2020-05-27 18:02 | disposition home or self-care (01) | DRG 884 ==
LOC: UNDOADMIN 01:23 → 3A 01:23 → 5A 06:49
PROVIDERS: ADMIT Psychiatry & Neurology Psychiatry; ATTEND Psychiatry & Neurology Psychiatry
DX: F01.51 Vascular dementia, unspecified severity, with behavioral disturbance (principal); I10 Essential (primary) hypertension; E78.5 Hyperlipidemia, unspecified; I67.2 Cerebral atherosclerosis; M85.812 Other specified disorders of bone density and structure, left shoulder
CPT/HCPCS: 36415; 80053; 80061; 82962; 83036; 84443; 84484; 85025; 93005; G0378; A9270-GY